=== PATIENT | female | born 1970 | race Caucasian/White ===

== ENCOUNTER 2017-08-19 19:33 | Emergency (ER) | payer OTHER, SELFPAY ==
[2017-08-19 19:33] VITALS: BP 134/92; PULSE 75; RESP 18; TEMP 36.8; O2SAT 96; BMI 44.6
[2017-08-19] MEDS: HYDROmorphone 1 MG/ML Syringe 0.5 MG IV (20:56)
[2017-08-19 21:14] LABS: Absolute Lymphocyte Count 4.26 X10^3/ul (0.83-4.51); Absolute Neutrophil Count 6.5 X10^3/uL (2.0-7.7); Basophil# 0.05 X10^3/uL; Basophil% 0.4 % (0-1); Eosinophils% 1.6 % (0-5); Hematocrit 39.2 % (37-47); Hemoglobin 12.8 g/dl (12.0-15.0); Lymphocyte # 4.26 X10^3/ul (4.0); Lymphocyte % 34.1 % (19-41); Mean Corp Hgb Conc 32.7 g/gl (32-36); Mean Corpuscular Hgb 27.8 pg (27.0-32.0); Mean Platelet Vol. 9.8 fl (6.2-12.0); Monocyte# 1.47 X10^3/uL; Monocyte% 11.8 % (0-10); Neutrophil # 6.45 X10^3/uL (2.7-7.7); Neutrophil % 51.7 % (47-70); Platelet Count 316 K/mm3 (150-450); RBC Distribution Width CV 13.2 % (11.6-14.6); RBC Distribution Width SD 40.7 fl (35.1-43.9); Red Blood Count 4.61 M/mm3 (4.2-5.4); White Blood Count 12.5 K/mm3 (4.4-11.0)
[2017-08-19 21:16] LABS: POSITIVE COUNT NO; POSITIVE DIFFERENTIAL NO; POSITIVE MORPHOLOGY NO
[2017-08-19 21:30] LABS: Anion Gap 8 (5-15); BUN 17 mg/dL (7-18); BUN/Creat Ratio 27.6 RATIO (10-20); Calcium,Total 8.8 mg/dL (8.5-10.1); Chloride 107 mmol/L (98-107); Creatinine, Serum 0.62 mg/dL (0.55-1.02); EST Glomerular Filtration Rate 111 mL/min (>60); Est Glom Filt Rate - Afr Amer 135 mL/min (>60); Estimated Creatinine Clearance 98.95 ml/min; Glucose 119 mg/dL (74-106); Potassium 3.8 mmol/L (3.5-5.1); Sodium Level 139 mmol/L (136-145)
[2017-08-19 21:55] VITALS: BP 128/70; PULSE 80; RESP 14; O2SAT 96
--- NOTE | 2017-08-19 21:57 | ED.DCSUM_ITS ---
- ER Visit Summary Date of Service: 08/19/17 Chief Complaint: Headache and wound check History of Present Illness: The patient is a 47 F who underwent a left carotid ophthalmic segment aneurysm surgery on August 09 at [facility]. She states that today she noticed an odor from her right femoral puncture site. She states that she had some old blood come from the wound. She also notes a headache on the left temporal side which she states she has had is not really any different. She has follow-up with her primary care physician in the morning. She is not scheduled to see neurosurgery for about 1 year. She also concerned because she has some bruises on her legs and she is not sure what he came from. She notes that they are on the outside. No bleeding of the gums. She is unsure if she received heparin in the hospital. Physical Examination: Afebrile vital signs are stable Gen: Well-nourished well-developed Head: Normocephalic atraumatic Eyes: Perrl EOMI no photophobia ENT: TMs clear no rhinorrhea moist mucous membranes Neck: Supple no lymphadenopathy no JVD nontender no meningitic signs CVS: Regular rate rhythm no murmurs normal S1-S2 Respiratory: No distress clear to auscultation bilaterally chest nontender Abdomen: Soft nontender nondistended normal bowel sounds no masses Back: Nontender Extremity: Nontender no edema there is a arterial puncture site in the right femoral area with a small hematoma. There is some erythema and white exudate in the abdominal skin fold in that area. I am not able to express any pus from the wound. She is neurovascularly intact distally with strong dorsalis pedis pulses. Skin: Normal color no rash there are purplish bruises laterally over the thigh about a half dollar size. There are 2 of these. Neuro: alert orientated ?3 CN II-XII intact normal strength sensation reflexes gait cerebellar Psych: Normal affect normal mood Test Results: White count 12.5 hemoglobin 12.8 platelets are 316. Emergency Department Course and Treatment: Spoke with patient. I think the smell she is experiencing is from East skin infection. I will place her on Keflex as well as nystatin powder however. I have her come back tomorrow morning for ultrasound to see if she has a pseudoaneurysm which I feel is unlikely but still should be ruled out for completeness. She has early follow- up tomorrow with her doctor. Impression: 1. Right thigh candidiasis infection 2. Postoperative hematoma This note was generated with [employer] dictation software. It may contain incorrect words, spelling, and punctuation that were not noted in review of the chart prior to signing ED Disposition - Plan for ED Patient: Disposition: Home or Assisted Living Chief Complaint: Headache Instructions: ED Candidiasis Cutaneous Prescriptions: Cephalexin [Keflex] 500 mg PO Q6 #40 cap Nystatin Powder [Mycostatin Powder] 1 applic TOPICAL TID 10 Days #1 bottle Referrals: Lazaro Kennedy DO [Primary Care Provider] - Keep Nikhil appointment
[2017-08-19 21:58] VITALS: BP 130/70; PULSE 75; RESP 14; O2SAT 99
[2017-08-19] MEDS: Cephalexin 250 MG Capsule 500 MG PO (21:58)
== END 2017-08-19 22:10 | disposition home or self-care (01) ==
PROVIDERS: Emergency Provider Emergency Medicine; Family Provider Student in an Organized Health Care Education/Training Program; PCP Student in an Organized Health Care Education/Training Program
DX: H59.3 Postprocedural hemorrhage, hematoma, and seroma of eye and adnexa following a procedure (principal); Y83.8 Other surgical procedures as the cause of abnormal reaction of the patient, or of later complication, without mention of misadventure at the time of the procedure; Y92.9 Unspecified place or not applicable; B37.9 Candidiasis, unspecified; E11.9 Type 2 diabetes mellitus without complications; I10 Essential (primary) hypertension; E78.00 Pure hypercholesterolemia, unspecified
CPT/HCPCS: 80048; 85025; 96374; 99284; A4216

== ENCOUNTER → 2017-08-21 07:56 | Outpatient (CLI) | payer OTHER, SELFPAY ==
--- NOTE | 2017-08-21 08:01 | ADU_ITS ---
Reason For Study: Rt groin pain Right Velocities Left Velocities RT METAL SANDER - .70 x .64 cm with a velocity of 109.0 LT METAL SANDER - .67 x .69 cm with a velocity of 200.0 cm/s cm/s RT CFV demonstrates normal phasic flow signal LT CFV demonstrates normal phasic flow signal. No evidence of PSA or AV fistula. Procedure Exam performed in department. Interpretation Summary Common femoral arteries appear bilaterally patent, demonstrating pulsatile color flow bilaterally. Common femoral veins are patent bilaterally, demonstrating normal, phasic, venous flow. There is no evidence of pseudoanuerysm, arterio-venous fistula, or other iatrogenic abnormality on either side. Ordering Physician: Jairo Vicente Referring Physician: Lazaro Kennedy Performed By: Naima Chan RVT
== END ==
PROVIDERS: Family Provider Student in an Organized Health Care Education/Training Program; PCP Student in an Organized Health Care Education/Training Program; Visit Provider Emergency Medicine
DX: M79.651 Pain in right thigh (principal)
CPT/HCPCS: 93926

== ENCOUNTER → 2017-09-12 18:43 | Outpatient (CLI) | payer OTHER, SELFPAY ==
[2017-09-12 18:55] LABS: Hematocrit 42.6 % (37-47); Mean Corp Hgb Conc 32.9 g/gl (32-36); Mean Corpuscular Hgb 28.3 pg (27.0-32.0); Mean Corpuscular Volume 86.1 fL (81-99); Mean Platelet Vol. 9.1 fl (6.2-12.0); Platelet Count 300 K/mm3 (150-450); RBC Distribution Width CV 14.1 % (11.6-14.6); RBC Distribution Width SD 44.1 fl (35.1-43.9); Red Blood Count 4.95 M/mm3 (4.2-5.4); White Blood Count 17.2 K/mm3 (4.4-11.0)
[2017-09-12 19:08] LABS: Scan Indicated on CBC? Y/N NO
== END ==
PROVIDERS: Family Provider Student in an Organized Health Care Education/Training Program; PCP Student in an Organized Health Care Education/Training Program
DX: R04.0 Epistaxis (principal)
CPT/HCPCS: 36415; 85027

== ENCOUNTER 2017-10-02 18:43 | Emergency (ER) | payer OTHER, SELFPAY ==
[2017-10-02 18:44] VITALS: BP 120/95; PULSE 111; RESP 20; TEMP 36.1; O2SAT 96; BMI 45.6
[2017-10-02 18:56] VITALS: BP 106/64; PULSE 96; RESP 14; O2SAT 97
--- NOTE | 2017-10-02 19:50 | CT_ITS ---
STUDY: CT BRAIN WITHOUT CONTRAST REASON FOR EXAM: Female, 47 years old. Left side of muscle cramps, lightheadedness RADIATION DOSAGE (If Supplied By Facility): CTDIvol = ( 44.99 ) mGy, DLP = ( 796.11 ) mGycm TECHNIQUE: Transaxial CT imaging of the brain was performed without administration of intravenous contrast material. Individualized dose optimization techniques were used for this CT. COMPARISON: None. FINDINGS: Normal soft tissue structures. Normal calvarium. Normal size ventricles and extra-axial spaces for the patient's age. Normal white matter tracts of the cerebral hemispheres. Old lacunar infarct or prominent perivascular space of the left basal ganglia. Normal thalami. Normal brainstem. Normal cerebellum. There is no intracranial hemorrhage. There are no findings of an acute ischemic infarction. Normal visualized paranasal sinuses. CT/Brain/Head without Contrast IMPRESSION: No acute intracranial pathology of the brain. Electronically Signed: Huang Talbert DO at 20:47 EDT Tel [phone], Service support ,
[2017-10-02 20:41] LABS: Absolute Lymphocyte Count 2.71 X10^3/ul (0.83-4.51); Absolute Neutrophil Count 4.8 X10^3/uL (2.0-7.7); Basophil# 0.04 X10^3/uL; Basophil% 0.5 % (0-1); Eosinophil# 0.11 X10^3/uL; Eosinophils% 1.3 % (0-5); Hematocrit 40.7 % (37-47); Hemoglobin 12.8 g/dl (12.0-15.0); Lymphocyte # 2.71 X10^3/ul (4.0); Lymphocyte % 31.4 % (19-41); Mean Corp Hgb Conc 31.4 g/gl (32-36); Mean Corpuscular Hgb 27.8 pg (27.0-32.0); Mean Corpuscular Volume 88.5 fL (81-99); Mean Platelet Vol. 8.9 fl (6.2-12.0); Monocyte# 0.85 X10^3/uL; Monocyte% 9.8 % (0-10); Neutrophil # 4.81 X10^3/uL (2.7-7.7); Neutrophil % 55.6 % (47-70); Platelet Count 279 K/mm3 (150-450); RBC Distribution Width CV 15.1 % (11.6-14.6); RBC Distribution Width SD 48.7 fl (35.1-43.9); White Blood Count 8.6 K/mm3 (4.4-11.0)
[2017-10-02 20:42] LABS: POSITIVE COUNT NO; POSITIVE DIFFERENTIAL NO; POSITIVE MORPHOLOGY NO
[2017-10-02 20:58] VITALS: BP 135/74; PULSE 86; RESP 14; O2SAT 95
[2017-10-02 20:58] LABS: Anion Gap 9 (5-15); BUN 19 mg/dL (7-18); BUN/Creat Ratio 28.8 RATIO (10-20); Calcium,Total 8.5 mg/dL (8.5-10.1); Chloride 104 mmol/L (98-107); Creatinine, Serum 0.66 mg/dL (0.55-1.02); EST Glomerular Filtration Rate 103 mL/min (>60); Est Glom Filt Rate - Afr Amer 124 mL/min (>60); Estimated Creatinine Clearance 92.95 ml/min; Glucose 114 mg/dL (74-106); Potassium 3.8 mmol/L (3.5-5.1); Sodium Level 139 mmol/L (136-145)
--- NOTE | 2017-10-02 21:51 | ED.VISSUMM ---
- ER Visit Summary Date of Service: 10/02/17 Chief Complaint: Muscle spasms, face numbness, low blood pressure History of Present Illness: The patient is a 47 F who underwent repair of a left carotid ophthalmic segment aneurysm at [facility] on August 09. Due to this her goal blood pressure is less than 140 systolic. Patient also had an ischemic stroke on August 26 at which time she had developed difficulty speaking and facial numbness. Patient states that she has had intermittent facial numbness since that time but symptoms for the most part have completely resolved. Patient presents to the ER tonight complaining of muscle cramps and spasms, worse in her legs. She is noted her blood pressure to be lower than normal today with systolic pressures as low as the 80s. She is also noted the facial numbness is more pronounced today and she has a mild headache. She was also recently started on insulin for blood sugar control. Physical Examination: Vital signs on arrival include a blood pressure of 106/64, temperature 97, heart rate 96, respiratory rate 14, pulse ox 97% on room air. Patient sitting upright in bed, alert and talkative. She is in no acute distress. Head and neck examination is unremarkable. Heart is regular rate and rhythm. Lung sounds are clear. Abdomen is soft nontender. Extremity examination reveals mild muscular tenderness in the right calf without palpable cord. No significant edema is noted. Neuro exam reveals slight decreased sensation to light touch over the face bilaterally, no focal weakness is noted. Test Results: CBC and chemistry studies are significant for glucose of 114. Her BUN tonight is 19 which has been climbing when compared to prior values. CT the head shows no acute pathology. Emergency Department Course and Treatment: She was given IV fluids. She will increase p.o. fluids at home and closely monitor her blood pressure. She did check her blood pressure monitor to our monitor here and it is pretty accurate. Patient will follow with her primary care physician. Treatment Plan: [] Disposition: Discharge Impression: Mild dehydration with muscle cramping This note was generated with [employer] dictation software. It may contain incorrect words, spelling, and punctuation that were not noted in review of the chart prior to signing ED Disposition - Plan for ED Patient: Disposition: Home or Assisted Living Chief Complaint: Numb/Ting Instructions: ED Dehydration Referrals: Lazaro Kennedy DO [Primary Care Provider] - 1 Week
[2017-10-02 22:00] VITALS: BP 109/59; PULSE 83; RESP 22; O2SAT 96
--- NOTE | 2017-10-02 22:00 | ED.RN ---
DISCHARGE INSTRUCTIONS GIVEN TO AND REVIEWED WITH PATIENT, PATIENT DENIES QUESTIONS OR CONCERNS AND VOICES UNDERSTANDING OF DISCHARGE INSTRUCTIONS. PT AMBULATES OUT OF ROOM WITHOUT DIFFICULTY.
== END 2017-10-02 22:01 | disposition home or self-care (01) ==
PROVIDERS: Emergency Provider Emergency Medicine; Family Provider Student in an Organized Health Care Education/Training Program; PCP Student in an Organized Health Care Education/Training Program
DX: E86.0 Dehydration (principal); R25.2 Cramp and spasm; E66.9 Obesity, unspecified; E11.9 Type 2 diabetes mellitus without complications; E78.00 Pure hypercholesterolemia, unspecified; J45.909 Unspecified asthma, uncomplicated; G47.33 Obstructive sleep apnea (adult) (pediatric); Z87.891 Personal history of nicotine dependence; Z79.4 Long term (current) use of insulin; F32.9 Major depressive disorder, single episode, unspecified; F41.9 Anxiety disorder, unspecified
CPT/HCPCS: 70450; 80048; 85025; 99284; J7040; A4216

== ENCOUNTER 2018-01-02 21:24 | Emergency (ER) | payer OTHER, SELFPAY ==
[2018-01-02 21:24] VITALS: BP 142/91; PULSE 76; RESP 18; TEMP 36.6; O2SAT 97; BMI 46.9
[2018-01-02] MEDS: Ketorolac 30 MG/ML Syringe IV (22:22)
[2018-01-02] MEDS: Metoclopramide 10 MG/2 ML Vial IV (22:22)
[2018-01-02] MEDS: 0.9% Normal Saline 1,000 ML 999 ML IV (22:22)
[2018-01-02] MEDS: DiphenhydrAMINE 50 MG/ML Syringe 25 MG IV (22:22)
--- NOTE | 2018-01-02 23:06 | ED.VISSUMM ---
- ER Visit Summary Date of Service: 01/02/18 Chief Complaint: Headache History of Present Illness: The patient is a 47 F who has had intermittent headaches for the past week but headache worsened around 2 PM this afternoon. She points to the right parietal region. She denies any recent head injury. Patient did have coiling to a brain aneurysm in August of this year. That is on the left side of her head. She has had multiple MRI scan since that time with no evidence of any other aneurysms. Patient did take Tylenol and oxycodone at home without improvement. She does describe blurred vision from both eyes along with nausea and light sensitivity. She has not had fever or other upper respiratory symptoms. Physical Examination: Vital signs are unremarkable. Head neck examination is grossly unremarkable. Heart is regular rate and rhythm. Lung sounds are clear. Abdomen soft nontender. Neuro exam is unremarkable. Test Results: [] Emergency Department Course and Treatment: Patient is given Toradol, Reglan, Benadryl, and IV fluids. On repeat evaluation she is sleeping comfortably. She easily awakens. She reports significant improvement in her headache. She will be discharged home with family member at this time. Treatment Plan: [] Disposition: Discharge Impression: Migraine, improved This note was generated with [employer] dictation software. It may contain incorrect words, spelling, and punctuation that were not noted in review of the chart prior to signing ED Disposition - Plan for ED Patient: Chief Complaint: Headache Referrals: Lazaro Kennedy DO [Primary Care Provider] -
--- NOTE | 2018-01-02 23:08 | ED.DEP ---
ED Disposition - Plan for ED Patient: Disposition: Home or Assisted Living Chief Complaint: Headache Instructions: ED Headache Migraine Referrals: Lazaro Kennedy DO [Primary Care Provider] - 1-2 Weeks
[2018-01-02 23:15] VITALS: BP 128/68; PULSE 70; RESP 16
== END 2018-01-02 23:16 | disposition home or self-care (01) ==
PROVIDERS: Emergency Provider Emergency Medicine; Family Provider Student in an Organized Health Care Education/Training Program; PCP Student in an Organized Health Care Education/Training Program
DX: G43.909 Migraine, unspecified, not intractable, without status migrainosus (principal); E11.9 Type 2 diabetes mellitus without complications; E78.00 Pure hypercholesterolemia, unspecified; Z87.891 Personal history of nicotine dependence
CPT/HCPCS: 99283; J7030

== ENCOUNTER 2018-01-22 13:55 | Outpatient (RCR) | payer OTHER, SELFPAY ==
--- NOTE | 2018-01-23 14:48 | HP.FCE ---
HP OT Functional Capacity Eval - Task Lift Floor (Occasional 1-33% of Day): 20# Floor (Frequent 34-66% of Day): 10# Floor (Constant 67-100% of Day): NA Floor PDL: Light Knee (Occasional 1-33% of Day): 20# Knee (Frequent 34-66% of Day): 10# Knee (Constant 67-100% of Day): NA Knee PDL: Light Waist (Occasional 1-33% of Day): 20# Waist (Frequent 34-66% of Day): 10# Waist (Constant 67-100% of Day): NA Waist PDL: Light Shoulder (Occasional 1-33% of Day): 15# Shoulder (Frequent 34-66% of Day): 8# Shoulder (Constant 67-100% of Day): NA Shoulder PDL: Sedentary-Light Overhead (Occasional 1-33% of Day): NA Overhead (Frequent 34-66% of Day): NA Overhead (Constant 67-100% of Day): NA Overhead PDL: No Ability - Work Activity/Posture Bending: Occasional Ability (1-33% of day) Comments: low occasional Squatting: Occasional Ability (1-33% of day) Comments: low occasional Kneeling: No Ablility (0% of day) Reaching out: Occasional Ability (1-33% of day) Reaching up: No Ablility (0% of day) Sitting: Occasional Ability (1-33% of day) Walking: Occasional Ability (1-33% of day) Comments: low occasional Standing: Occasional Ability (1-33% of day) Comments: low occasional - Reference Duration Sedentary Sedentary Light Light Light Medium Medium Medium Heavy Very Heavy Heavy Occasional (0-33% of day) Frequent (34-66% of day) Constant (67-100% of day) 10 # Negligible Negligible 15 # 8 # Negligible 20 # 10# Negli. 35 # 18 # 7 # 50 # 25 # 10 # 75 # 100 # >100 # 38 # 50 # >50 # 15 # 20 # >20 # - Patient Information Height: 1.63 m Weight:: 124.284 kg Hand Dominance: Right - Medical History Medical History Including Restrictions: PT reports she has a complicated health and emotional hx.PT states she was on disability 2000 with dx. Bipolar, anxiety, depression. With medical treatment she was able to return to work in 2004. Pt reports she started having trouble with her health in early 2015, having pain in joints, difficulty breathing and joints swelling. PT was dx in 2015 with mixed connective tissue disorder, Fibro, Lung disease with systemic sclerosis, centrllobular emphysema, scleroderma. pt states the joint pain and back pain limit her with daily tasks. pt states she is back to seeing a counsler 2x month for her depression. Pt states her Nurologist Dr. Mejía states she is not allowed to get her BP up past 130/80, as this can cause her to have another stroke. - Diagnoses Diagnoses: DDD dx 2004. Bilateral Knee pain dx 1999. Chronic low back pain with sciatica dx 2003. Lung disease with systemic sclerosis dx 2015. Centrllobular emphysema dx in 2015. Scleroderma dx 2016. Mixed connective tissue disease dx 2016. Fibromyalgia dx 2016. Brain Anuyrism dx 2018. Stroke dx 2018. DMII dx 2012. Factor 8 Blood disorder dx 2017. Migraines dx 2018. Bipolar Disorder - Symptoms Symptoms: Brain Fog. Dizzy. Joint pain. Muscle pain. Decreased concertration. difficult time putting sentences together. Anger mood swings. Depression - Pain Pain: pt states her current pain level is 4-5/10 with medication. 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 PT states due to health issues she was unable to continue working at this job. Her family did tell her to stop working due to her health issues. - Behavioral Behavioral: pt was cooroperative - ADLS ADLS: Pt reports she lives with her spouse in a one story home with a basement with 4 entry steps. Pt states laundry is in the basement and she is able to go down the flight of stairs with us of rails. Pt states she does have a tub shower combo and will only shower with her on because she gets dizzy while in the shower. Pt states she can perform meal prep and meals with taking rest breaks. Pt states she drives only in town. pt is able to do shoping with her spouse. Pt states she is KRISTIN with her bathing and dressing tasks. Pt reports her sister comes and will do the cleaing. - Physical Examination ROM: Pt demo limited Bilateral shoulder flex to 90 degress. pt demo all other ROM WFL but reported pain with movement 8/10. Strength: PT demo functional strength levels grossly throughout at 4/5. Right Exercise Equipment Specialist Strength Average: 35.00 Right Exercise Equipment Specialist Strength Percentile: 1.5% Left Exercise Equipment Specialist Strength Average: 41.00 Left Exercise Equipment Specialist Strength Percentile: 5% Right Lateral Pinch Average: 7.33 Right Lateral Pinch Percentile: <10% Left Lateral Pinch Average: 9.33 Left Lateral Pinch Percentile: 10% Right Tripod Pinch Average: 10.00 Right Tripod Pinch Percentile: 25% Left Tripod Pinch Average: 9.66 Left Tripod Pinch Percentile: 25% Sensation: Using [employer] monofilament pt tested left 5 digits tested at 3.22 indicating slight decrease in sensation. right digit 1, 3, and 5 tested at 3.61 slight decrease in sensation and digits 2 and 4 testing at 3.84 some sensation loss Fine Motor: Denies concerns Balance: no loss of balance noted during assessment - Non Material Handling Activities Bending: Pt demo the ability to bend forward three times and reported back pain 7-8/10 and became emotional due to her pain levels. Pt did use external support during task. pt was unable to perform task ten time or ten times rapidly. pt can bend forward on a low occasional basis. Squatting: Pt demo the ability to squat three times with external support. pt reported bilateral knee pain 7/10, back pain 8-9/10. pt can squat on a low occassional ability. Kneeling: Pt demo the ability to kneel one time with heavy use of extneral support kneeling down and getting up. pt reported back pain 7-8/10 and knee pain 6-7/10. pt demo no functional ability to kneel. Reaching out/up: Pt demo the ability to reach out three times and then 5 times. pt was unable to completed reaching out ten times or ten times rapidly. pt can reach out on a low occasional ability. Pt demo no ability to reach up. Walking: pt demo the ability to amb with a antalgic reciprical gait for 8 min. pt reported joint pain at 8/10. pt can amb on a low occasional ability. Standing: pt demo the ability to stand for 2 min before needing to sift body weight. pt demo total time of standing 6 min prior to sitting down. pt can stand on a low occasional basis. Sitting: pt demo the ability to sit for 35 min and needed to stand- pt stood for 2 min and returnd to sitting for another 33 min. pt can sit on a occasional basis. Climbing Stairs: pt ascended/descended ten steps with between a reciprical and right left foot step-up pattern using both hand rails. - Dynamic Occasional Lifting Capacity Floor Lift: pt demo the ability to lift 20# maximally from this level. Knee Lift: pt demo the ability to lift 20# maximally from this level. Waist Lift: pt demo the ability to lift 20# maximally from this level. Shoulder Lift: pt demo the ability to lift 15# maximally from this level. Overhead Lift: no ability Carrying: pt demo the ability to carry 15# for 35 feet. pt states her back, hips and knee pain is 8/10. pt reports senation of arms and legs feeling like jello. Comments: Pain is limiting factor with functional tasks.
== END 2018-01-22 19:00 | disposition home or self-care (01) ==
LOC: OT 13:55
PROVIDERS: Family Provider Student in an Organized Health Care Education/Training Program; PCP Student in an Organized Health Care Education/Training Program; Visit Provider Student in an Organized Health Care Education/Training Program
DX: M25.511 Pain in right shoulder (principal); M25.512 Pain in left shoulder; M25.561 Pain in right knee; M25.562 Pain in left knee; M54.40 Lumbago with sciatica, unspecified side; G89.29 Other chronic pain; M34.81 Systemic sclerosis with lung involvement; J43.2 Centrilobular emphysema; M34.9 Systemic sclerosis, unspecified
CPT/HCPCS: 97750

== ENCOUNTER → 2018-04-17 11:34 | Emergency (ER) | payer OTHER, SELFPAY ==
[2018-04-17 11:35] VITALS: BP 121/90; PULSE 84; RESP 20; TEMP 36.7; O2SAT 99; BMI 47.7
--- NOTE | 2018-04-17 13:14 | ED.RN ---
pt lwbs at [id number]
== END ==
PROVIDERS: Family Provider Student in an Organized Health Care Education/Training Program; PCP Student in an Organized Health Care Education/Training Program
DX: R69 Illness, unspecified (principal)

== ENCOUNTER 2018-04-18 14:06 | Emergency (ER) | payer OTHER, SELFPAY ==
[2018-04-18 14:12] VITALS: BP 181/89; PULSE 79; RESP 18; TEMP 36.1; O2SAT 97; BMI 47.7
[2018-04-18 14:35] VITALS: RESP 18; O2SAT 100
--- NOTE | 2018-04-18 14:35 | RAD_ITS ---
STUDY: X-RAY CHEST REASON FOR EXAM: Female, 47 years old. Shortness of breath. Pain. Congestion TECHNIQUE: PA and lateral views of the chest. COMPARISON: July 28, 2017. FINDINGS: The lungs are clear and expanded. There is no demonstrated pleural abnormality. Normal size heart. Normal mediastinum and kaya. Normal visualized pulmonary arteries. Normal visualized aortic arch and descending thoracic aorta. There are diffuse degenerative changes of the visualized thoracic spine. Normal visualized ribs, clavicles, and shoulders. There is no demonstrated abnormality of the visualized soft tissue structures of the upper abdomen. RAD/Chest PA and Lateral IMPRESSION: Normal x-ray examination of the chest. Electronically Signed: Henry Vinson MD at 15:21 EDT , Service support ,
--- NOTE | 2018-04-18 15:56 | CT_ITS ---
STUDY: CTA CHEST REASON FOR EXAM: Female, 47 years old. Right-sided chest pain, congestion, clotting disorder, hypertension, diabetes and asthma. RADIATION DOSAGE (If Supplied By Facility): CTDIvol = ( 16.72 ) mGy, DLP = ( 668.06 ) mGycm TECHNIQUE: The examination was performed with the intravenous administration of 100mL ml of Isovue 370 contrast material. Post-processing of the angiographic images was performed, with multiplanar reformation and 3D reconstruction. Individualized dose optimization techniques were used for this CT. COMPARISON: Chest radiograph of April 18, 2018 FINDINGS: Normal enhancement of the main pulmonary artery and right and left pulmonary arteries. Normal enhancement of the bilateral peripheral pulmonary arteries. There is no demonstrated pulmonary embolism. Normal thoracic aorta and visualized great vessels. There is no demonstrated aortic dissection. Normal heart and pericardium. Minimal coronary calcification. Normal mediastinum. Shotty hilar lymph nodes. Mild emphysematous upper lung zone changes. 5 x 4 mm noncalcified nodule juxtaposed the minor fissure. Mild posterior bibasilar atelectatic changes right greater than left. Mild linear atelectatic changes of the lingula. Negative for pleural effusion. Normal chest wall structures. There are degenerative changes of thoracic spine. Fatty liver. 1.4 cm fatty nodule of the left adrenal gland consistent with benign etiology. CT/CTA Chest W/WO Contrast IMPRESSION: Negative for pulmonary embolus. Normal thoracic aorta. Minimal coronary calcification. Shotty hilar lymph nodes, long axis less than 1.5 cm. Mild emphysematous upper lung zone changes. Mild posterior bibasilar atelectatic changes right greater than left and minimal linear atelectatic change. 5 x 4 mm noncalcified perifissural nodule of the right middle lung zone. Nodules of this size require no specific follow-up in a low risk patient. Twelve-month follow-up high risk patient. Electronically Signed: Jaylin Gracia MD at 17:11 EDT , Service support ,
--- NOTE | 2018-04-18 15:56 | EKG12_ITS ---
Test Reason : CP Blood Pressure : / mmHG Vent. Rate : 070 BPM Atrial Rate : 070 BPM P-R Int : 150 ms QRS Dur : 086 ms QT Int : 400 ms P-R-T Axes : 065 011 048 degrees QTc Int : 432 ms Normal sinus rhythm Normal ECG Confirmed by LORETA RUTHERFORD MD ([id number]), metropolitan editor GERMAN GREENBERG ([id number]) on 04/21/2018 3:17:21 PM Referred By: EDPHYS Confirmed By:LORETA RUTHERFORD MD
[2018-04-18 16:19] LABS: Absolute Lymphocyte Count 3.05 X10^3/ul (0.83-4.51); Absolute Neutrophil Count 3.3 X10^3/uL (2.0-7.7); Basophil# 0.05 X10^3/uL; Basophil% 0.7 % (0-1); Eosinophil# 0.22 X10^3/uL; Hematocrit 41.5 % (37-47); Hemoglobin 13.4 g/dl (12.0-15.0); Lymphocyte # 3.05 X10^3/ul (4.0); Lymphocyte % 41.3 % (19-41); Mean Corp Hgb Conc 32.3 g/gl (32-36); Mean Corpuscular Hgb 26.2 pg (27.0-32.0); Mean Corpuscular Volume 81.1 fL (81-99); Mean Platelet Vol. 9.5 fl (6.2-12.0); Monocyte# 0.74 X10^3/uL; Neutrophil # 3.31 X10^3/uL (2.7-7.7); Neutrophil % 44.9 % (47-70); Platelet Count 270 K/mm3 (150-450); RBC Distribution Width CV 14.7 % (11.6-14.6); RBC Distribution Width SD 43.5 fl (35.1-43.9); Red Blood Count 5.12 M/mm3 (4.2-5.4); White Blood Count 7.4 K/mm3 (4.4-11.0)
[2018-04-18 16:23] LABS: Anion Gap 6 (5-15); BUN 10 mg/dL (7-18); BUN/Creat Ratio 15.4 RATIO (10-20); Calcium,Total 8.6 mg/dL (8.5-10.1); Chloride 104 mmol/L (98-107); Creatinine, Serum 0.65 mg/dL (0.55-1.02); EST Glomerular Filtration Rate 104 mL/min (>60); Est Glom Filt Rate - Afr Amer 126 mL/min (>60); Estimated Creatinine Clearance 94.38 ml/min; Glucose 115 mg/dL (74-106); Sodium Level 141 mmol/L (136-145)
[2018-04-18 16:25] LABS: POSITIVE COUNT NO; POSITIVE DIFFERENTIAL NO; POSITIVE MORPHOLOGY NO
[2018-04-18 16:29] VITALS: PULSE 74; RESP 14; O2SAT 95
[2018-04-18] MEDS: 0.9% Normal Saline 1,000 ML 150 ML IV (17:15)
--- NOTE | 2018-04-18 17:34 | ED.VISSUMM ---
- ER Visit Summary Date of Service: 04/18/18 Chief Complaint: Shortness of breath, right lung pain History of Present Illness: The patient is a 47 F who developed right sided lung pain yesterday. She had dry cough with some head congestion. No fever or chills. She does have a history of a clotting disorder, factor VIII. She had clots in her brain after aneurysm surgery previously. Physical Examination: Blood pressure on arrival is 181/89, other vitals normal. Patient sitting upright initially the amezquita bed. She is in no acute distress and speaking full sentences. Head neck examination is unremarkable. Heart is regular rate and rhythm. Lung sounds are clear. Abdomen is soft nontender. Lower external examination was no significant calf tenderness or edema. Test Results: EKG is sinus at 70 with no acute ischemia. CBC and chemistry studies normal. Two-view chest x-ray is unremarkable. Because of the patient's clotting disorder, CTA of the chest is obtained that reveals no evidence of PE and a normal aorta. There is are mild emphysematous changes noted over the upper lungs. She has noncalcified nodule noted. Emergency Department Course and Treatment: Patient has maintained stable vitals throughout her ED stay. Test results are discussed with her. She will be given a short course of steroids for pleurisy. Treatment Plan: [] Disposition: Discharge Impression: Pleurisy This note was generated with [employer] dictation software. It may contain incorrect words, spelling, and punctuation that were not noted in review of the chart prior to signing ED Disposition - Plan for ED Patient: Chief Complaint: Chest Other Referrals: Lazaro Kennedy DO [Primary Care Provider] -
--- NOTE | 2018-04-18 17:36 | ED.DEP ---
ED Disposition - Plan for ED Patient: Disposition: Home or Assisted Living Chief Complaint: Chest Other Instructions: Pleurisy Prescriptions: Prednisone [Deltasone] 60 mg PO DAILY #15 tablet Referrals: Lazaro Kennedy DO [Primary Care Provider] - 1 Week
[2018-04-18] MEDS: predniSONE 20 MG Tablet 60 MG PO (17:41)
[2018-04-18 17:45] VITALS: BP 129/76; PULSE 72; RESP 16; O2SAT 97
--- NOTE | 2018-04-18 17:45 | ED.RN ---
REVIEWED D/C INSTRUCTIONS, FOLLOW UP CARE, PRESCRIPTION, AND S/S THAT WOULD WARRANT A RETURN TO THE ED WITH PT. PT VERBALIZED AN UNDERSTANDING AND DENIES FURTHER QUESTIONS FOR THIS RN. PT SKIN P/W/D, RESP EVEN AND UNLABORED, PT A&O X 3, NO DISTRESS NOTED. PT AMBULATED OUT OF ED, GAIT STEADY.
== END 2018-04-18 17:47 | disposition home or self-care (01) ==
PROVIDERS: Emergency Provider Emergency Medicine; Family Provider Student in an Organized Health Care Education/Training Program; PCP Student in an Organized Health Care Education/Training Program
DX: R09.1 Pleurisy (principal); E11.9 Type 2 diabetes mellitus without complications; I10 Essential (primary) hypertension; E78.00 Pure hypercholesterolemia, unspecified; G47.33 Obstructive sleep apnea (adult) (pediatric); D68.51 Activated protein C resistance; J45.909 Unspecified asthma, uncomplicated; Z87.891 Personal history of nicotine dependence; Z79.4 Long term (current) use of insulin
CPT/HCPCS: 71046; 71275; 80048; 85025; 93005; 94760; 99284; J7030; Q9967; A4216

== ENCOUNTER 2018-07-01 14:10 | Emergency (ER) | payer OTHER, SELFPAY ==
[2018-07-01 14:12] VITALS: BP 162/98; PULSE 95; RESP 16; TEMP 36.1; O2SAT 100; BMI 50.1
[2018-07-01 14:27] VITALS: BP 158/110
--- NOTE | 2018-07-01 14:27 | EKG12_ITS ---
Test Reason : CP Blood Pressure : / mmHG Vent. Rate : 087 BPM Atrial Rate : 087 BPM P-R Int : 152 ms QRS Dur : 092 ms QT Int : 360 ms P-R-T Axes : 062 003 046 degrees QTc Int : 433 ms Normal sinus rhythm Left ventricular hypertrophy Abnormal ECG Confirmed by ASHOK LARIOS, NAYLA ([id number]), assistant production editor GERMAN GREENBERG ([id number]) on 07/04/2018 3:17:04 PM Referred By: VAMSHI Confirmed By:NAYLA PULIDO MD
[2018-07-01] MEDS: Aspirin 81 MG TAB.CHEW 324 MG PO (14:37)
[2018-07-01] MEDS: Morphine 4 MG/ML Syringe IV (14:37)
[2018-07-01] MEDS: 0.9% Normal Saline 1,000 ML 150 ML IV (14:37)
[2018-07-01] MEDS: Ondansetron 4 MG/2 ML Vial IV (14:37)
[2018-07-01 14:43] VITALS: O2SAT 98
[2018-07-01 14:43] LABS: Absolute Lymphocyte Count 1.42 X10^3/ul (0.83-4.51); Absolute Neutrophil Count 10.5 X10^3/uL (2.0-7.7); Basophil# 0.05 X10^3/uL; Basophil% 0.4 % (0-1); Eosinophil# 0.01 X10^3/uL; Eosinophils% 0.1 % (0-5); Hemoglobin 13.9 g/dl (12.0-15.0); Lymphocyte # 1.42 X10^3/ul (4.0); Lymphocyte % 11.1 % (19-41); Mean Corp Hgb Conc 32.3 g/gl (32-36); Mean Corpuscular Hgb 26.3 pg (27.0-32.0); Mean Corpuscular Volume 81.4 fL (81-99); Mean Platelet Vol. 9.4 fl (6.2-12.0); Monocyte# 0.77 X10^3/uL; Neutrophil # 10.46 X10^3/uL (2.7-7.7); Neutrophil % 81.9 % (47-70); Platelet Count 323 K/mm3 (150-450); RBC Distribution Width CV 13.4 % (11.6-14.6); RBC Distribution Width SD 39.7 fl (35.1-43.9); Red Blood Count 5.28 M/mm3 (4.2-5.4); White Blood Count 12.8 K/mm3 (4.4-11.0)
[2018-07-01 14:44] LABS: POSITIVE COUNT NO; POSITIVE DIFFERENTIAL NO; POSITIVE MORPHOLOGY NO
[2018-07-01 14:51] LABS: D-Dimer Quantitative (DVT/PE) 0.52 FEU/ug/m (0.27-0.49)
--- NOTE | 2018-07-01 14:52 | ED.RN ---
DR. BUCK AWARE OF ELEVATED DDIMER.
--- NOTE | 2018-07-01 14:53 | RAD_ITS ---
STUDY: X-RAY CHEST REASON FOR EXAM: Female, 47 years old. TECHNIQUE: COMPARISON: Was made to the study of April 18, 2018 FINDINGS: Again the heart is not enlarged. The lungs are clear and expanded. There is no demonstrated pleural abnormality. Normal mediastinum and kaya. Normal visualized pulmonary arteries. Normal visualized aortic arch and descending thoracic aorta. Normal visualized thoracic spine. Normal visualized ribs, clavicles, and shoulders. There is no demonstrated abnormality of the visualized soft tissue structures of the upper abdomen. RAD/Chest 1 View (Portable) IMPRESSION: Normal x-ray examination of the chest. Electronically Signed: My Sánchez, at 15:13 EST Tel , Service support ,
[2018-07-01 14:55] LABS: Anion Gap 9 (5-15); BUN 16 mg/dL (7-18); BUN/Creat Ratio 16.8 RATIO (10-20); Calcium,Total 8.9 mg/dL (8.5-10.1); Chloride 103 mmol/L (98-107); Creatinine, Serum 0.95 mg/dL (0.55-1.02); EST Glomerular Filtration Rate 67 mL/min (>60); Est Glom Filt Rate - Afr Amer 81 mL/min (>60); Estimated Creatinine Clearance 64.58 ml/min; Glucose 245 mg/dL (74-106); Potassium 4.3 mmol/L (3.5-5.1); Sodium Level 137 mmol/L (136-145)
--- NOTE | 2018-07-01 15:15 | CT_ITS ---
STUDY: CTA CHEST REASON FOR EXAM: Female, 47 years old. RADIATION DOSAGE (If Supplied By Facility): CTDIvol = ( 23.37 ) mGy, DLP = ( 677.86 ) mGycm TECHNIQUE: The examination was performed with the intravenous administration of 100ML ml of Isovue 370 contrast material. Post-processing of the angiographic images was performed, with multiplanar reformation and 3D reconstruction. Individualized dose optimization techniques were used for this CT. COMPARISON: April 18, 2018 FINDINGS: The cardiac silhouette is not enlarged The pulmonary trunk and both pulmonary arteries including the segmental and subsegmental branches are delineated well with contrast without evidence of filling defect to suggest pulmonary embolism. The aortic arch including the the ascending and descending aorta are unremarkable. The lung brown are clear. No evidence of consolidation or atelectasis. No pleural effusion or pneumothorax. There are moderate hypertrophic changes involving the dorsal spine. Normal chest wall structures. Normal visualized upper abdomen. . CT/CTA Chest W/WO Contrast IMPRESSION: Negative study for PE. Electronically Signed: My Sánchez, at 16:07 EST Tel , Service support ,
[2018-07-01 16:09] VITALS: BP 140/114; PULSE 99; RESP 18; O2SAT 93
--- NOTE | 2018-07-01 16:14 | ED.VISSUMM ---
- ER Visit Summary Date of Service: 07/01/18 Chief Complaint: [Chest pain] History of Present Illness: The patient is a 47 F [presents to the emergency department with complaint of pain in her right chest and right upper back. Patient states pain worse with movement. Patient states pain not really neuritic. She denies any fever. She denies any cough. Patient states that she had surgery on her right foot May 05. She denies any hemoptysis. Patient has history of autoimmune these including scleroderma, lupus, fibromyalgia, and Raynaud's. She has been taking Naprosyn and Flexeril and did have a Percocet left over from her surgery which did not seem to help her pain very much. Patient states pain is sharp intermittently but has a continuous aching sensation in her right chest and back.] Physical Examination: [HEENT-PERRLA, EOMI. Cranial nerves II through XII grossly intact. TMs clear. Mucous membranes moist. No adenopathy. Cardiovascular-regular rate and rhythm without murmur or ectopy Lungs-clear to auscultation, chest wall stable without crepitus or subcu emphysema. Patient has tenderness to palpation over the right anterior chest wall that seems to reproduce her pain. Patient also has tenderness over the right posterior upper thoracic paraspinal musculature that reproduces her pain. Abdomen-normoactive bowel sounds, soft, nontender, no rebound or rigidity, no peritoneal signs. Extremities-intact ?4, normal range of motion, normal pulses, atraumatic] Test Results: [EKG obtained arrival shows sinus rhythm with a ventricular rate of 87 bpm with some LVH noted. CBC with differential was significant for a white blood cell count of 12.8. Hemoglobin 13.9, hematocrit 43, platelets 323.. Chemistries unremarkable.] Troponin was less than 0.015. Chest x-ray was normal. D-dimer was elevated 0.52 therefore a CTA of the chest was obtained which was negative for PE or anything acute. Emergency Department Course and Treatme patient was medicated with morphine and Zofran Treatment Plan: [Patient will be given a prescription for Percocet for pain and advised to follow-up with primary care physician within next 3-5 days.] Disposition: [Discharged home in stable condition. Patient advised to return if worsening pain, fever, hemoptysis, increasing shortness of breath, or condition should worsen anyway.] Impression: [Chest wall pain] This note was generated with [employer] dictation software. It may contain incorrect words, spelling, and punctuation that were not noted in review of the chart prior to signing ED Disposition - Plan for ED Patient: Chief Complaint: Chest Pain Referrals: Lazaro Kennedy DO [Primary Care Provider] -
--- NOTE | 2018-07-01 16:18 | ED.DCSUM_ITS ---
- ER Visit Summary Date of Service: 07/01/18 Chief Complaint: [Chest pain] History of Present Illness: The patient is a 47 F [presents to the emergency department with complaint of pain in her right chest and right upper back. Patient states pain worse with movement. Patient states pain not really neuriti c. She denies any fever. She denies any cough. Patient states that she had surgery on her right foot May 05. She denies any hemoptysis. Patient has history of autoimmune these including scleroderma, lupus, fibromyalgia, and Raynaud's. She has been taking Naprosyn and Flexeril and did have a Percocet left over from her surgery which did not seem to help her pain very much. Patient states pain is sharp intermittently but has a continuous aching sensation in her right chest and back.] Physical Examination: [HEENT-PERRLA, EOMI. Cranial nerves II through XII grossl y intact. TMs clear. Mucous membranes moist. No adenopathy. Cardiovascular-regular rate and rhythm without murmur or ectopy Lungs-clear to auscultation, chest wall stable without crepitus or subcu emphysema. Patient has tenderness to palpation over the right anterior chest wall that seems to reproduce her pain. Patient also has tenderness over the right posterior upper thoracic paraspinal musculature that reproduces her pain. Abdomen-normoactive bowel sounds, soft, nontender, no rebound or rigidity, no peritoneal signs. Extremities-intact ?4, normal range of motion, normal pulses, atraumatic] Test Results: [EKG obtained arrival shows sinus rhythm with a ventricular rate of 87 bpm with some LVH noted. CBC with differential was significant for a white blood cell count of 12.8. Hemoglobin 13.9, hematocrit 43, platelets 323.. Chemistries unremarkable.] Troponin was less than 0.015. Chest x-ray was normal. D-dimer was elevated 0.52 therefore a CTA of the chest was obtained which was negative for PE or anything acute. Emergency Department Course and Treatme patient was medicated with morphine and Zofran Treatment Plan: [Patient will be given a prescription for Percocet for pain and advised to follow-up with primary care physician within next 3-5 days.] Disposition: [Discharged home in stable condition. Patient advised to return if worsening pain, fever, hemoptysis, increasing shortness of breath, or condition should worsen anyway.] Impression: [Chest wall pain] This note was generated with [employer] dictation software. It may contain incorrect words, spelling, and punctuation that were not noted in review of the chart prior to signing ED Disposition - Plan for ED Patient: Chief Complaint: Chest Pain Referrals: Lazaro Kennedy DO [Primary Care Provider] -
--- NOTE | 2018-07-01 16:18 | ED.DEP ---
ED Disposition - Plan for ED Patient: Chief Complaint: Chest Pain Instructions: ED Chest Pain NonCardiac, ED Chest Pain Atypical Unkn Cause Prescriptions: Oxycodone HCl/Acetaminophen [Percocet 5/325] 1 tab PO Q6H PRN PRN 3 Days #12 tab PRN Reason: Pain Referrals: Lazaro Kennedy DO [Primary Care Provider] - 3-5 Days
[2018-07-01 16:26] VITALS: BP 121/66; PULSE 91; RESP 17; O2SAT 93
== END 2018-07-01 16:27 | disposition home or self-care (01) ==
LOC: ED 14:36
PROVIDERS: Emergency Provider Emergency Medicine; Family Provider Student in an Organized Health Care Education/Training Program; PCP Student in an Organized Health Care Education/Training Program
DX: R07.89 Other chest pain (principal); E11.9 Type 2 diabetes mellitus without complications; I10 Essential (primary) hypertension; E78.00 Pure hypercholesterolemia, unspecified; J45.909 Unspecified asthma, uncomplicated; M32.9 Systemic lupus erythematosus, unspecified; M79.7 Fibromyalgia; I73.00 Raynaud's syndrome without gangrene; M34.9 Systemic sclerosis, unspecified
CPT/HCPCS: 71045; 71275; 80048; 84484; 85025; 85379; 93005; 99284; J7030; Q9967; A4216; J2405

== ENCOUNTER 2018-08-19 17:59 | Emergency (ER) | payer OTHER, SELFPAY ==
[2018-08-19 18:00] VITALS: BP 165/113; PULSE 95; RESP 16; TEMP 36.9; O2SAT 95; BMI 49.0
--- NOTE | 2018-08-19 18:31 | CT_ITS ---
STUDY: CTA OF THE BRAIN REASON FOR EXAM: Female, 48 years old. Left aneurysm RADIATION DOSAGE (If Supplied By Facility): CTDIvol = ( 29.19 ) mGy, DLP = ( 1627.91 ) mGycm TECHNIQUE: CT angiography was performed with a multi-detector CT scanner. Data acquisition was obtained from the skull base through the vertex following intravenous administration of ml of . MIP images were reconstructed from the axial data set. Post-processing of the angiographic images was performed, with multiplanar reformation and 3D reconstruction. Individualized dose optimization techniques were used for this CT. COMPARISON: None. FINDINGS: Normal bilateral petrous carotid arteries. Normal right cavernous carotid artery with a normal supraclinoid bifurcation. There appears to be a patent stent in the left cavernous carotid artery with a normal supraclinoid bifurcation. Normal right A1 segments of the anterior cerebral artery. Normal left A1 segments of the anterior cerebral artery. Normal intact anterior communicating artery (ACOM). Normal bilateral A2 segments of the anterior cerebral arteries. Normal right M1 and M2 segments of the middle cerebral arteries, with a normal M1 bifurcation. Normal left M1 and M2 segments of the middle cerebral arteries, with a normal M1 bifurcation. Normal right posterior communicating artery (PCOM). Normal left posterior communicating artery (PCOM). Normal bilateral vertebral arteries. Normal basilar artery with a normal basilar bifurcation. The visualized bilateral superior cerebellar (SCA) arteries are normal. Normal bilateral P1, P2 and visualized P3 segments of the posterior cerebral arteries. . There is no demonstrated abnormality of the visualized brain. CT/CTA Head W/WO Contrast IMPRESSION: Patent stented left cavernous carotid artery otherwise normal [place] without a demonstrated aneurysm or hemodynamically significant stenosis. Electronically Signed: Ambrose Almendarez MD at 22:04 EST , Service support ,
--- NOTE | 2018-08-19 18:31 | CT_ITS ---
STUDY: CTA NECK WITH CONTRAST REASON FOR EXAM: Female, 48 years old. Left aneurysm and headache RADIATION DOSAGE (If Supplied By Facility): CTDIvol = ( 29.19 ) mGy, DLP = ( 1627.91 ) mGycm TECHNIQUE: CT angiography with multi-detector data acquisition was performed from the aortic arch to the skull base following intravenous administration of 100 ml of Isovue 370 contrast. MIP images were reconstructed from the axial data set. Post-processing of the angiographic images was performed, with multiplanar reformation and 3D reconstruction. Individualized dose optimization techniques were used for this CT. COMPARISON: None. FINDINGS: AORTIC ARCH: Normal visualized aortic arch. Normal origins of the brachiocephalic, left common carotid, and left subclavian arteries. RIGHT CAROTID ARTERIES: Normal right common carotid artery (CCA). Normal right common carotid bulb. Normal origin of the right internal carotid (ICA) artery without a hemodynamically significant stenosis. Normal visualized cervical portion of the right internal carotid artery. Normal origin of the right external carotid artery (ECA). LEFT CAROTID ARTERIES: Normal left common carotid artery (CCA). Normal left common carotid bulb. Normal origin of the left internal carotid (ICA) artery without a hemodynamically significant stenosis. Normal visualized cervical portion of the left internal carotid artery. Normal origin of the left external carotid artery (ECA). VERTEBRAL ARTERIES: Left vertebral is dominant and normal caliber. The right vertebral is mildly diffusely narrowed which is normal developmental variant CT/CTA Neck W/WO Contrast IMPRESSION: Normal bilateral cervical carotid and vertebral arteries. Electronically Signed: Ambrose Almendarez MD at 22:05 EST , Service support ,
[2018-08-19] MEDS: 0.9% Normal Saline 1,000 ML 150 ML IV (19:00)
[2018-08-19 19:12] LABS: Mucous, Urine 0 SEEN /hpf (<or=2+); Red Blood Cells-Urine 0 SEEN /hpf (0-5); Squamous Epithelial Cells - UA 0 SEEN /hpf (5-10); White Blood Cells 0 SEEN /hpf (0-5)
[2018-08-19 19:18] LABS: Color, Urine Yellow (Yellow); Glucose, Dipstick 1000 mg/dl (Normal); Ketone-Dipstick Negative (Negative); Leukocyte Esterase-Dipstick Negative /ul (Negative); Nitrite-Dipstick Negative (Negative); Occult Blood-Urine Negative /ul (Negative); Protein-Dipstick Negative (Negative); Urine Bilirubin Dipstick Negative (Negative); Urine Clarity Clear (Clear); Urine Urobilinogen Normal (Normal)
[2018-08-19 19:20] LABS: Absolute Lymphocyte Count 4.09 X10^3/ul (0.83-4.51); Absolute Neutrophil Count 6.6 X10^3/uL (2.0-7.7); Basophil# 0.05 X10^3/uL; Basophil% 0.4 % (0-1); Eosinophil# 0.14 X10^3/uL; Eosinophils% 1.2 % (0-5); Hematocrit 48.1 % (37-47); Hemoglobin 15.5 g/dl (12.0-15.0); Lymphocyte # 4.09 X10^3/ul (4.0); Lymphocyte % 33.9 % (19-41); Mean Corp Hgb Conc 32.2 g/gl (32-36); Mean Corpuscular Hgb 26.2 pg (27.0-32.0); Mean Corpuscular Volume 81.4 fL (81-99); Mean Platelet Vol. 9.7 fl (6.2-12.0); Monocyte# 1.13 X10^3/uL; Monocyte% 9.4 % (0-10); Neutrophil # 6.59 X10^3/uL (2.7-7.7); Neutrophil % 54.7 % (47-70); POSITIVE COUNT NO; POSITIVE DIFFERENTIAL NO; POSITIVE MORPHOLOGY NO; Platelet Count 343 K/mm3 (150-450); RBC Distribution Width CV 13.9 % (11.6-14.6); RBC Distribution Width SD 41.2 fl (35.1-43.9); Red Blood Count 5.91 M/mm3 (4.2-5.4); White Blood Count 12.1 K/mm3 (4.4-11.0)
[2018-08-19 19:27] LABS: Anion Gap 8 (5-15); BUN 14 mg/dL (7-18); BUN/Creat Ratio 20.3 RATIO (10-20); Chloride 103 mmol/L (98-107); Creatinine, Serum 0.69 mg/dL (0.55-1.02); EST Glomerular Filtration Rate 98 mL/min (>60); Est Glom Filt Rate - Afr Amer 118 mL/min (>60); Estimated Creatinine Clearance 87.97 ml/min; Glucose 88 mg/dL (74-106); Sodium Level 138 mmol/L (136-145)
[2018-08-19 19:29] LABS: Bacteria RARE /hpf (None Seen)
--- NOTE | 2018-08-19 22:32 | ED.VISSUMM ---
- ER Visit Summary Date of Service: 08/19/18 Chief Complaint: [Headache] History of Present Illness: The patient is a 48 F [presents the emergency department complaint of a headache that started 3 days ago. Patient states the pain came on somewhat suddenly and it was a sharp stabbing pain in the top of her head. Patient had a dull ache since that time that is been continuous with intermittent sharp stabbing pains. Patient rates her headache a 4 out of 10. Patient's had no nausea or vomiting. She denies any photophobia. Patient denies recent illness. She denies any fall or head injury. Patient does have a history of a aneurysm with a stent/coil placed in the left side of her carotid artery about a year ago. Patient has history of mixed connective tissue disorder and lupus. Patient is a diabetic and has history of high cholesterol.] Physical Examination: [HEENT-PERRLA, EOMI. Cranial nerves II through XII grossly intact. TMs clear. Mucous membranes moist. No adenopathy. Cardiovascular-regular rate and rhythm without murmur or ectopy Lungs-clear to auscultation, chest wall stable without crepitus or subcu emphysema Abdomen-normoactive bowel sounds, soft, nontender, no rebound or rigidity, no peritoneal signs. Neuro [id number]-[id number] and heel littlejohn testing within normal limits, negative Romberg, negative pronator drift, fundi benign NIH stroke scale is a 1 given for paresthesias to the right arm. I do not appreciate any obvious weakness. Extremities-intact ?4, normal range of motion, normal pulses, atraumatic] Test Results: [CTA of the head showed a stented and patent left cavernous carotid otherwise nothing acute. CTA of the neck was normal. CBC with differential obtained showed a white count 12.1, hemoglobin 15, hematocrit was 48. Platelet count normal. Chemistries were unremarkable. Urinalysis was normal.] Emergency Department Course and Treatment: [Case was discussed with the patient and results. I discussed case with Dr. Lauro Hubbard who is on-call for neurology. At this point the etiology of her symptoms is unclear. I did give the patient option for admission for further workup and evaluation including MRI of the brain and possible cervical spine to evaluate further. Patient would feel more comfortable following up with her neurologist at the [facility] tomorrow. I feel this is reasonable.] Treatment Plan: [Follow-up with neurology] Disposition: [Discharged home in stable condition] Impression: [Cephalgia Paresthesias] This note was generated with [employer] dictation software. It may contain incorrect words, spelling, and punctuation that were not noted in review of the chart prior to signing ED Disposition - Plan for ED Patient: Referrals: Lazaro Kennedy DO [Primary Care Provider] -
--- NOTE | 2018-08-19 22:37 | ED.DEP ---
ED Disposition - Plan for ED Patient: Instructions: ED Cephalgia Unspecified, ED Paraesthesias Referrals: Lazaro Kennedy DO [Primary Care Provider] - Additional Instructions: See your neurologist in 1-2 days
[2018-08-19 22:51] VITALS: BP 147/80; PULSE 85; RESP 17; O2SAT 96
== END 2018-08-19 22:52 | disposition home or self-care (01) ==
LOC: ED 19:17
PROVIDERS: Emergency Provider Emergency Medicine; Family Provider Student in an Organized Health Care Education/Training Program; PCP Student in an Organized Health Care Education/Training Program
DX: R51 Headache (principal); R20.2 Paresthesia of skin; E11.9 Type 2 diabetes mellitus without complications; E78.00 Pure hypercholesterolemia, unspecified; Z95.828 Presence of other vascular implants and grafts; Z79.4 Long term (current) use of insulin; Z79.82 Long term (current) use of aspirin; Z79.899 Other long term (current) drug therapy
CPT/HCPCS: 70496; 70498; 80048; 81001; 85025; 96360; 96361; 99284; J7030; Q9967; A4216

== ENCOUNTER 2020-07-11 16:58 | Observation (INO) | payer OTHER, SELFPAY ==
[2020-07-11] VITALS (9 sets, daily range): BP systolic 132–164; BP diastolic 66–116; PULSE 65–87; RESP 16–22; TEMP 36–37.2; O2SAT 96–100; BMI 40.3; BMI 41.8
--- NOTE | 2020-07-11 17:13 | EKG12_ITS ---
Test Reason : CP Blood Pressure : / mmHG Vent. Rate : 075 BPM Atrial Rate : 075 BPM P-R Int : 158 ms QRS Dur : 090 ms QT Int : 404 ms P-R-T Axes : 062 002 032 degrees QTc Int : 451 ms Normal sinus rhythm Normal ECG Confirmed by ASHOK LARIOS, NAYLA ([id number]), scientific editor VERENA BALDERRAMA ([id number]) on 07/13/2020 9:33:12 AM Referred By: WHIT Confirmed By:NAYLA PULIDO MD
--- NOTE | 2020-07-11 17:21 | ED.DCSUM_ITS ---
- ER Visit Summary Date of Service: 07/11/20 Chief Complaint: Chest pain History of Present Illness: The patient is a 49 F presenting with chest pain. Patient states this has been intermittent over the past 2 weeks but progressively becoming more frequent. She states the chest pain will come on when she exerts herself or walks upstairs. She complains of midsternal chest pain with radiation to her left jaw. She describes it as a pressure sensation. Currently pain is 0 out of 10, at worst it is 10 out of 10. She has associated shortness of breath and nausea. She has a family history of heart disease unknown age. She is a previous smoker. She has history of hypertension and hypercholesterolemia. She was advised by her primary care physician to come to the emergency department for evaluation. Physical Examination: Vitals are stable. Patient is afebrile. Alert no acute distress. HEENT exam is unremarkable. Neck is supple. Lungs are clear and equal bilaterally. Heart is regular rate and rhythm. Abdomen is soft nontender nondistended. Extremities are unremarkable. Skin is warm and dry. No focal neurologic deficit. Remainder of exam is unremarkable. Emergency Department Course and Treatment: Patient was given aspirin on arrival. EKG is sinus rhythm rate of 75 with no acute ischemic changes. CBC, chemistries unremarkable. Troponin is negative. While in the emergency room patient walked to the bathroom and began having chest pain again. This is relieved with rest. Discussed with hospitalist for observation. Disposition: Observation Impression: Chest pain This note was generated with [employer] dictation software. It may contain incorrect words, spelling, and punctuation that were not noted in review of the chart prior to signing ED Disposition - Plan for ED Patient: Referrals: Lazaro Kennedy DO [Primary Care Provider] -
[2020-07-11] MEDS: Aspirin 81 MG TAB.CHEW 324 MG PO (17:26)
[2020-07-11 17:33] LABS: Absolute Lymphocyte Count 3.53 X10^3/uL (0.83-4.51); Absolute Neutrophil Count 2.4 X10^3/uL (2.0-7.7); Basophil% 1.4 % (0-1); Eosinophil# 0.29 X10^3/uL; Eosinophils% 3.9 % (0-5); Hematocrit 43.4 % (37-47); Hemoglobin 14.2 g/dL (12.0-15.0); Lymphocyte # 3.53 X10^3/ul (4.0); Mean Corp Hgb Conc 32.7 g/dL (32-36); Mean Corpuscular Hgb 28.2 pg (27.0-32.0); Mean Corpuscular Volume 86.1 fL (81-99); Mean Platelet Vol. 9.4 fl (6.2-12.0); Monocyte# 0.97 X10^3/uL; Monocyte% 13.2 % (0-10); NRBC Flagged by Analyzer 0 % (0-5); Neutrophil # 2.44 X10^3/uL (2.7-7.7); Neutrophil % 33.1 % (47-70); Platelet Count 317 K/mm3 (150-450); RBC Distribution Width CV 11.9 % (11.6-14.6); RBC Distribution Width SD 37.6 fl (35.1-43.9); Red Blood Count 5.04 M/mm3 (4.2-5.4); White Blood Count 7.4 K/mm3 (4.4-11.0)
--- NOTE | 2020-07-11 17:45 | RAD_ITS ---
STUDY: X-RAY CHEST REASON FOR EXAM: Female, 49 years old. chest pain TECHNIQUE: Single AP portable view of the chest. COMPARISON: 07/01/2018 FINDINGS: EKG leads overlie the chest The lungs are clear and expanded. There is no demonstrated pleural abnormality. Normal size heart. Normal mediastinum and kaya. Normal visualized pulmonary arteries. Normal visualized aortic arch and descending thoracic aorta. Normal visualized thoracic spine. Normal visualized ribs, clavicles, and shoulders. There is no demonstrated abnormality of the visualized soft tissue structures of the upper abdomen. RAD/Chest 1 View (Portable) IMPRESSION: Normal x-ray examination of the chest. Electronically Signed: Cleveland Veronica MD at 18:24 EST , Service support ,
[2020-07-11 18:00] LABS: Anion Gap 6 (5-15); BUN 16 mg/dL (7-18); BUN/Creat Ratio 20.3 RATIO (10-20); Calcium,Total 8.7 mg/dL (8.5-10.1); Chloride 109 mmol/L (98-107); Creatinine, Serum 0.79 mg/dL (0.55-1.02); EST Glomerular Filtration Rate 83 mL/min (>60); Est Glom Filt Rate - Afr Amer 100 mL/min (>60); Estimated Creatinine Clearance 76.02 ml/min; Glucose 92 mg/dL (74-106); Potassium 3.9 mmol/L (3.5-5.1); Sodium Level 138 mmol/L (136-145)
--- NOTE | 2020-07-11 18:44 | HP.PCM_ITS ---
Problem List (1) Chest pain Status: Acute Qualifiers: Chest pain type: chest pain due to myocardial ischemia Ischemic chest pain type: stable angina pectoris Qualified Code(s): I20.8 - Other forms of angina pectoris (2) Hyperlipidemia Status: Chronic (3) Type 2 diabetes mellitus Status: Chronic History of Present Illness Date of Admission: 07/11/20 Chief Complaint: chest pain The patient is a 49 year old F presents chest pain. Chest pain occurs with exertion and position (lying on sides). Had similar, but less severe chest pain in past in which she had a stress test that was negative at that time. Patient states that she is feeling anxious when she is having chest pain and when I was talking to her she was developing chest pain. She has never had chest pain like this with anxiety before. [] Past Medical History Past Medical History (Chronic Problems): Chronic Problems Type 2 diabetes mellitus (Chronic) Hyperlipidemia (Chronic) Medical History: Medical History (Last Updated 07/11/20 @ 18:[address] Bishop Taylor, DO) DM2 (diabetes mellitus, type 2) E11.9 Fibromyalgia M79.7 Hyperlipidemia E78.5 Lupus (systemic lupus erythematosus) M32.9 Raynaud disease I73.00 Scleroderma M34.9 Allergies atorvastatin calcium [From Lipitor] Allergy (Verified 07/11/20 17:00) Hives lamotrigine [From Lamictal] Allergy (Verified 07/11/20 17:00) Hives midazolam HCl [From Versed] Allergy (Verified 07/11/20 17:00) Other paroxetine [From Paxil] Allergy (Verified 07/11/20 17:00) Rash Penicillins Allergy (Verified 07/11/20 17:00) Hives Home Medications: Ambulatory Orders Medication Instructions Recorded Albuterol IH (ProAir) [Proair Hfa 2 puff INHALATION Q4H PRN PRN 07/01/18 (SP)Vent Pts] Amlodipine [Norvasc] 10 mg PO DAILY 07/01/18 Aspirin 325 mg PO DAILY 07/01/18 Calcium Carbonate/Vitamin D3 1 each PO DAILY 07/01/18 [Caltrate 600 Plus D3 Tablet] Canagliflozin [Invokana] 300 mg PO DAILY 07/01/18 Celecoxib [Celebrex] 200 mg PO BID 07/01/18 Clopidogrel Bisulfate [Clopidogrel] 75 mg PO DAILY 07/01/18 Dulaglutide [Trulicity] 1.5 mg SQ QWEEK 07/01/18 Ergocalciferol (Vitamin D2) 50,000 unit PO WESA 07/01/18 [Vitamin D2] Esomeprazole Magnesium [Nexium] 40 mg PO BID 07/01/18 Fluticasone/Salmeterol [Advair 1 each IH BID 07/01/18 500-50 Diskus] Gabapentin [Neurontin] 200 mg PO DAILY 07/01/18 Gabapentin [Neurontin] 400 mg PO QHS 07/01/18 Glimepiride [Amaryl] 1 mg PO BID 07/01/18 Hydroxychloroquine [Plaquenil] 200 mg PO BIDCM 07/01/18 Insulin Lispro [Humalog] 2 - 20 unit SQ 4X/DAY 07/01/18 Loperamide [Imodium] 2 mg PO ACHS 07/01/18 Magnesium 250 mg PO DAILY 07/01/18 Polyethylene Glycol 3350 [Miralax] 17 gm PO DAILY PRN 07/01/18 busPIRone [Buspar] 5 mg PO TID 07/01/18 cycloBENZAPRine HCl [Flexeril] 10 mg PO TID PRN PRN 07/01/18 Calcium Carb/Vitamin D3/Vit K1 5 each PO DAILY 08/19/18 [Citracal Soft Chew] Glucosam/Chondroit/C/Manganese 1 cap PO TID 08/19/18 [Cosamin Ds Capsule] Metoprolol Succinate 25 mg PO DAILY 07/11/20 Oxcarbazepine 150 mg PO DAILY 07/11/20 Prednisone 10 mg PO DAILY 07/11/20 Surgical History: appendectomy, herniorrhaphy, hysterectomy, - - Lumbar discectomy, tubal ligation Psychiatric History: No pertinent psych hx 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 Denies: Palpitations Respiratory: Reports: Shortness of breath upon exertion. Denies: Cough, Sputum production Gastrointestinal: Denies: Abdominal Pain, Nausea, Vomiting Genitourinary: Denies: Dysuria Musculoskeletal: Denies: Joint Pain, Joint Tenderness Skin: Denies: Rash, Wounds Hematologic/ Lymphatic: Denies: Easy Bruising, Easy Bleeding, Hx of blood clot Comment: All review of systems were negative except as mentioned above in the history of present illness and the other review of systems. VTE Information - Inpt Only VTE Present on Admission: No VTE Mechan Device Prophylaxis: None VTE Pharm Prophylaxis ordered?: No Reason prophylaxis not ordered:: Treatment Not Indicated - Physical Exam Vitals/I&O's: Vital Signs Temp Pulse Resp BP Pulse Ox 37.2 C 77 18 147/76 H 100 07/11/20 18:29 07/11/20 18:29 07/11/20 18:29 07/11/20 18:29 07/11/20 18:29 Oxygen Delivery Method Room Air Weight: 106.594 kg Body Mass Index (BMI) 40.3 General: Alert, Cooperative, No apparent distress, - - Appears older than stated age HEENT: Atraumatic, Normocephalic Oral: Moist Mucosa, No Gingival or Mucosal Lesions/ Ulcerations Neck: No Nodes, Thyroid Normal Size and Texture Lungs: Clear to auscultation, Normal air movement, No rhonchi, No wheeze, No rales Cardiovascular: Regular rate, Regular Rhythm, Normal S1, Normal S2, No murmurs Abdomen: Bowel Sounds Present, Soft, Non Tender, Non-Distended, No Hepato-splenomegaly Extremities: No edema, No Calf Tenderness Skin: No rashes, No breakdown, - - No taut skin on her face nor hands. Musculoskeletal: No Tenderness to Palpation of Joints or Extremities, No Muscle Wasting Psych/Mental Status: Normal Affect, Appropriate Laboratory Results 07/11/20 17:27: WBC 7.4, RBC 5.04, Hgb 14.2, Hct 43.4, MCV 86.1, MCH 28.2, MCHC 32.7, RDW Std Deviation 37.6, RDW Coeff of Jaskaran 11.9, Plt Count 317, MPV 9.4, Immature Gran % (Auto) 0.400, Neut % (Auto) 33.1 L, Lymph % (Auto) 48.0 H, [place] % (Auto) 13.2 H, Eos % (Auto) 3.9, Baso % (Auto) 1.4 H, Absolute Neuts (auto) 2.4, Absolute Lymphs (auto) 3.53, Nucleated RBC % 0 07/11/20 17:27: Sodium 138, Potassium 3.9, Chloride 109 H, Carbon Dioxide 23.0, Anion Gap 6, BUN 16, Creatinine 0.79, Estim Creat Clear Calc 76.02, Est GFR (MDRD) Af Amer 100, Est GFR (MDRD) Non-Af 83, BUN/Creatinine Ratio 20.3 H, Glucose 92, Calcium 8.7, Troponin I 0.023 Chest x-ray reviewed and showed no infiltrate nor edema EKG reviewed and showed normal sinus rhythm with no acute changes. Assessment/Plan All Active Problems Chest pain (Acute) 1. Chest pain: Patient states that it is typically worse with exertion but can occur with changing positions but also just talking to me when she was feeling anxious. EKG and troponins thus far are negative. Plan is for a nuclear stress test on the fifth. Complicating her picture is a history of scleroderma and lupus. Patient is a former smoker. 2. Scleroderma: Patient follows up with a glazier supervisor at the [facility]. Patient does not have any of the classic skin findings that I can easily identify with taut facial features or involving her digits. Follow-up with rheumatology as outpatient. 3. Raynaud's phenomenon: No active issues. Continue with amlodipine. 4. Diabetes mellitus type 2: Continue with glimepiride & scale insulin. Resume dulaglutide and canagliflozin upon discharge 5. SLE: Continue with hydroxychloroquine 6. VTE prophylaxis not indicated as observation status. OBSV E&M: 24934 Initial observation care L2
--- NOTE | 2020-07-11 18:55 | EKG12_ITS ---
Test Reason : CP ADMIT Blood Pressure : / mmHG Vent. Rate : 067 BPM Atrial Rate : 067 BPM P-R Int : 164 ms QRS Dur : 094 ms QT Int : 406 ms P-R-T Axes : 050 -13 016 degrees QTc Int : 429 ms Normal sinus rhythm Confirmed by ASHOK LARIOS, NAYLA ([id number]), health editor VERENA BALDERRAMA ([id number]) on 07/13/2020 9:43:00 AM Referred By: DR GAXIOLA Confirmed By:NAYLA PULIDO MD
--- NOTE | 2020-07-11 19:26 | PCS.PANDOC ---
PANDEMIC DOCUMENTATION INITIATED: Date: 07/08/20 Time: 3024
[2020-07-11] MEDS: busPIRone 5 MG Tablet PO (22:09)
[2020-07-11] MEDS: Pantoprazole Sodium 40 MG Tablet PO (22:10)
[2020-07-11] MEDS: Gabapentin 400 MG Capsule PO (22:10)
[2020-07-11] MEDS: Loperamide 2 MG Capsule PO (22:10)
[2020-07-11] MEDS: LORazepam 1 MG Tablet PO (22:14)
[2020-07-11 22:40] LABS: Bedside Glucose 126 mg/dL (70-110)
[2020-07-11] MEDS: oxyCODONE 5 MG Tablet PO (23:13)
[2020-07-12 03:00] VITALS: PULSE 71
[2020-07-12 05:15] VITALS: BP 115/75; PULSE 74; RESP 16; TEMP 35.7; O2SAT 100
[2020-07-12] MEDS: busPIRone 5 MG Tablet PO (05:40)
[2020-07-12] MEDS: Loperamide 2 MG Capsule PO ×2 (06:30→10:51)
[2020-07-12] MEDS: Clopidogrel Bisulfate 75 MG Tablet PO (06:31)
[2020-07-12] MEDS: Aspirin 325 MG Tablet PO (06:31)
--- NOTE | 2020-07-12 06:36 | EKG12_ITS ---
Test Reason : PRE-STRESS TEST Blood Pressure : / mmHG Vent. Rate : 066 BPM Atrial Rate : 066 BPM P-R Int : 162 ms QRS Dur : 096 ms QT Int : 424 ms P-R-T Axes : 055 -05 022 degrees QTc Int : 444 ms Normal sinus rhythm Normal ECG Confirmed by ASHOK LARIOS, NAYLA ([id number]), index editor VERENA BALDERRAMA ([id number]) on 07/13/2020 9:45:44 AM Referred By: ANGEL Confirmed By:NAYLA PULIDO MD
[2020-07-12 06:55] LABS: Bedside Glucose 74 mg/dL (70-110)
[2020-07-12 07:00] VITALS: PULSE 68
[2020-07-12 07:12] VITALS: O2SAT 97
[2020-07-12 07:13] LABS: Cholesterol 246 mg/dL (200); High Density Lipoprotein 40 mg/dL; Triglycerides 336 mg/dL; Very Low Density Lipoprotein 67 mg/dL (5-40)
[2020-07-12 08:01] LABS: Bedside Glucose 86 mg/dL (70-110)
--- NOTE | 2020-07-12 10:17 | STRESSREP_ITS ---
Stress Test Report Date: Procedure: Pharmacologic stress nuclear imaging study Indications: Chest pain; fibromyalgia; scleroderma; CVA Consent: Per the patient Procedure: The patient underwent pharmacologic (Regadenoson) evaluation with a peak heart rate of 112 beats per minute (64% predicted maximal heart rate) and a peak blood pressure of 132/74 mmHg. The baseline ECG demonstrated normal sinus rhythm. The peak pharmacologic ECG demonstrated no obvious ECG changes. There were no cardiac dysrhythmias pretest, during pharmacologic infusion, or recovery. The patient noted chest/neck discomfort in recovery. The examination was discontinued secondary to completion of protocol. Impression: 1. Pharmacologic (Regadenoson) evaluation 2. Peak pharmacologic ECG with no obvious ECG changes. 3. There were no cardiac dysrhythmias pretest, during pharmacologic infusion, or recovery. 4. Nuclear images pending Myocardial perfusion imaging study: Technique: The patient was injected with 15.0 millicuries of technetium 99m Cardiolite and subsequently rest SPECT Cardiolite nuclear imaging was obtained in the horizontal long, vertical long, and short axis views. The patient underwent pharmacologic (Regadenoson) evaluation with a peak heart rate of 112 beats per minute (64% percent predicted maximal heart rate) and a peak blood pressure of 132/74 mmHg. The patient was injected with 44.3 millicuries of technetium 99m Cardiolite and subsequently stress SPECT Cardiolite nuclear imaging was obtained in the horizontal long, vertical long, and short axis views. A gated Cardiolite study at peak stress was obtained. Interpretation: Rest and stress SPECT Cardiolite nuclear imaging status post realignment, normalization, and attenuation correction demonstrate the appearance of body motion during image acquisition and at rest the appearance of diminished tracer uptake in portions of the mid anterior segments which status post stress appear to improve and/or normalize with similar type findings on resting and stress polar map images. There is an element of diminished end systolic thickening and brightening. The gated Cardiolite study demonstrates an element of diminished myocardial thickening and inward wall motion. The reported LVEF is 44%. Impression: 1. Rest and stress SPECT Cardiolite nuclear imaging demonstrate myocardial perfusion changes appearing compatible with the effects of motion artifact during image acquisition as well as shifting soft tissue attenuation/artifact being more prominent at rest as opposed to stress with no myocardial perfusion changes considered diagnostic for associated stress-induced myocardial ischemia. 2. The gated Cardiolite study reports an LVEF of 44%. This note was generated with [employer] software. It may contain incorrect words, spelling, and punctuation that were not noted in checking the note before signing.
[2020-07-12] MEDS: Calcium Carb/Vitamin D 1 TABLET Tablet PO (10:50)
[2020-07-12] MEDS: predniSONE 10 MG Tablet PO (10:50)
[2020-07-12] MEDS: Hydroxychloroquine 200 MG Tablet PO (10:50)
[2020-07-12] MEDS: Magnesium Chloride 64 MG Delay Rel.Tablet 128 MG PO (10:50)
[2020-07-12 10:51] VITALS: BP 157/85; PULSE 77
[2020-07-12] MEDS: amLODIPine 10 MG Tablet PO (10:51)
[2020-07-12] MEDS: Metoprolol(XL)Succ 25 MG Tablet PO (10:51)
[2020-07-12] MEDS: Pantoprazole Sodium 40 MG Tablet PO (10:55)
[2020-07-12] MEDS: OXcarbazepine 150 MG Tablet PO (10:56)
[2020-07-12 10:57] VITALS: BP 157/85; PULSE 77; RESP 18; TEMP 36.5; O2SAT 98
--- NOTE | 2020-07-12 11:00 | DCINST_ITS ---
- Discharge Diagnoses Current Active Problems: Current Active and Chronic Problems (Last Updated 07/11/20 @ 18:[address] Bishop Taylor, DO) Hyperlipidemia (Chronic) Type 2 diabetes mellitus (Chronic) Chest pain (Acute) You will use the following diet at home:: Cardiac Your food should be the consistency of: Regular Discharge Activity: Return to Normal Activity Weight Bearing Status: Full weight bearing Call your doctor if you observe: Fever of 101 or Higher, Shortness of breath, Dizziness, Fainting spells, Chest pain, Increased palpitations (irregular heartbeat), Uncontrolled pain Allergies/Adverse Reactions: Allergies atorvastatin calcium [From Lipitor] Allergy (Verified 07/11/20 17:00) Hives lamotrigine [From Lamictal] Allergy (Verified 07/11/20 17:00) Hives midazolam HCl [From Versed] Allergy (Verified 07/11/20 17:00) Other paroxetine [From Paxil] Allergy (Verified 07/11/20 17:00) Rash Penicillins Allergy (Verified 07/11/20 17:00) Hives Medications to take at Discharge Albuterol IH (ProAir) [Proair Hfa] 2 puff INHALATION Q4H PRN PRN 07/01/18 Amlodipine [Norvasc] 10 mg PO DAILY 07/01/18 Aspirin 325 mg PO DAILY 07/01/18 Calcium Carbonate/Vitamin D3 [Caltrate 600 Plus D3 Tablet] 1 each PO DAILY 07/01/18 Celecoxib [Celebrex] 200 mg PO BID 07/01/18 Clopidogrel Bisulfate [Clopidogrel] 75 mg PO DAILY 07/01/18 Dulaglutide [Trulicity] 1.5 mg SQ QWEEK 07/01/18 Ergocalciferol (Vitamin D2) [Vitamin D2] 50,000 unit PO WESA 07/01/18 Esomeprazole Magnesium [Nexium] 40 mg PO BID 07/01/18 Fluticasone/Salmeterol [Advair 500-50 Diskus] 1 each IH BID 07/01/18 Hydroxychloroquine [Plaquenil] 200 mg PO BIDCM 07/01/18 Magnesium 250 mg PO DAILY 07/01/18 Polyethylene Glycol 3350 [Miralax] 17 gm PO DAILY PRN 07/01/18 busPIRone [Buspar] 10 mg PO TID 07/01/18 cycloBENZAPRine HCl [Flexeril] 10 mg PO TID PRN PRN 07/01/18 Calcium Carb/Vitamin D3/Vit K1 [Citracal-D3 500 mg Soft Chew] 5 each PO DAILY 08/19/18 Lorazepam [Ativan] 1 mg PO Q6H PRN PRN 07/11/20 Metoprolol Succinate 25 mg PO DAILY 07/11/20 Oxcarbazepine 150 mg PO DAILY 07/11/20 Primary Care Physician: Lazaro Kennedy DO [Primary Care Provider] - Please follow up with your Primary Care Physician in: 1-2 weeks. Test Results: Test results from this visit will be discussed in further detail at your follow- up appointment, if applicable.
--- NOTE | 2020-07-12 11:05 | PHA.DC.MR ---
Pharmacy Service has performed discharge medication reconciliation for this patient. The patient's discharge medication list was reviewed for discrepancies and discrepancies were resolved. Home Medications Albuterol IH (ProAir) [Proair Hfa] 2 puff INHALATION Q4H PRN PRN 07/01/18 Amlodipine [Norvasc] 10 mg PO DAILY 07/01/18 Aspirin 325 mg PO DAILY 07/01/18 Calcium Carbonate/Vitamin D3 [Caltrate 600 Plus D3 Tablet] 1 each PO DAILY 07/01/18 Celecoxib [Celebrex] 200 mg PO BID 07/01/18 Clopidogrel Bisulfate [Clopidogrel] 75 mg PO DAILY 07/01/18 Dulaglutide [Trulicity] 1.5 mg SQ QWEEK 07/01/18 Ergocalciferol (Vitamin D2) [Vitamin D2] 50,000 unit PO WESA 07/01/18 Esomeprazole Magnesium [Nexium] 40 mg PO BID 07/01/18 Fluticasone/Salmeterol [Advair 500-50 Diskus] 1 each IH BID 07/01/18 Hydroxychloroquine [Plaquenil] 200 mg PO BIDCM 07/01/18 Magnesium 250 mg PO DAILY 07/01/18 Polyethylene Glycol 3350 [Miralax] 17 gm PO DAILY PRN 07/01/18 busPIRone [Buspar] 10 mg PO TID 07/01/18 cycloBENZAPRine HCl [Flexeril] 10 mg PO TID PRN PRN 07/01/18 Calcium Carb/Vitamin D3/Vit K1 [Citracal-D3 500 mg Soft Chew] 5 each PO DAILY 08/19/18 Lorazepam [Ativan] 1 mg PO Q6H PRN PRN 07/11/20 Metoprolol Succinate 25 mg PO DAILY 07/11/20 Oxcarbazepine 150 mg PO DAILY 07/11/20
--- NOTE | 2020-07-12 13:04 | PCM.DC.SUM ---
Discharge Date and Diagnosis - Problem List Patient Problems: Active and Suspected Problems (Last Updated 07/11/20 @ 18:[address] Bishop Taylor DO) Chest pain (Acute) Date of Admission: 07/11/20 Date of Discharge: 07/12/20 - Primary Discharge Diagnosis Acute Problems: Active Problems (Last Updated 07/11/20 @ 18:[address] Bishop Taylor DO) Chest pain, ACS ruled out, could be due to GERD. - Secondary Discharge Diagnosis Chronic Problems: Chronic Problems (Last Updated 07/11/20 @ 18:[address] Bishop Taylor DO) Hyperlipidemia (Chronic) Type 2 diabetes mellitus (Chronic) Hospital Course and Treatment Imaging Results: 07/12/20 05:55 Nuclear Stress Test - Chemical [NM] AM (NON MEDS) Clinical Impression(s) from Imaging Studies Chest X-Ray 07/11/20 17:45 IMPRESSION: Normal x-ray examination of the chest. Electronically Signed: Cleveland Veronica MD at 18:24 EST , Service support , . Nuclear stress test result. Impression: 1. Rest and stress SPECT Cardiolite nuclear imaging demonstrate myocardial perfusion changes appearing compatible with the effects of motion artifact during image acquisition as well as shifting soft tissue attenuation/artifact being more prominent at rest as opposed to stress with no myocardial perfusion changes considered diagnostic for associated stress-induced myocardial ischemia. 2. The gated Cardiolite study reports an LVEF of 44%. Operations: None Procedures: EKG, Stress test Summary of Care Provided: The patient is a 49 year old F admitted because of intermittent chest pain that has been going on for 2 weeks for evaluation. Her initial EKG showed normal sinus rhythm without evidence of acute ischemic changes. Troponin was negative x3. Chest x-ray showed no acute findings. Lipid profile revealed total cholesterol of 246, LDL cholesterol of 139 and HDL cholesterol of 40. Patient had a history of GERD and she has been on PPI and she mentioned that she went for upper EGD at outside facility but no ulcers were found. She has been on PPI for a long time. She underwent nuclear stress test that showed no evidence of stress-induced myocardial ischemia. ACS ruled out. Her chest pain could be due to GERD. Patient discharged home in a stable medical condition, discharged on her previous home medications without any changes, recommended follow-up with PCP in 1 to 2 weeks. Patient Problems: Active and Suspected Problems (Last Updated 07/11/20 @ 18:[address] Bishop Taylor, DO) Chest pain (Acute) - Physical Exam Vitals/I&O's: Vital Signs Temp Pulse Resp BP Pulse Ox 97.7 F L 77 18 157/85 H 98 07/12/20 10:57 07/12/20 10:57 07/12/20 10:57 07/12/20 10:57 07/12/20 10:57 Oxygen Flow Rate (L/min) 2 Oxygen Delivery Method Room Air Weight: 244 lb Body Mass Index (BMI) 41.8 Intake and Output for Last 24 Hours 07/10/20 07/11/20 07/12/20 23:59 23:59 23:59 Intake Total 120 / 120 Balance 120 / 120 General: Alert, Oriented x3, Cooperative, No apparent distress HEENT: Atraumatic, PERRLA, EOMI, Normocephalic Oral: Moist Mucosa, No Gingival or Mucosal Lesions/ Ulcerations Neck: Supple, No JVD, Negative Carotid Bruits, Trachea Midline, Thyroid Normal Size and Texture Lungs: Clear to auscultation, Normal air movement, No rhonchi, No wheeze, No rales Cardiovascular: Regular rate, Regular Rhythm, Normal S1, Normal S2, PMI Normal Abdomen: Bowel Sounds Present, Soft, Non Tender, Non-Distended, No Hepato-splenomegaly Extremities: No clubbing, No cyanosis, No edema Skin: No rashes, No breakdown Lymphatic: No Cervical, Supraclavicular, or Inguinal Adenopathy Neurological: Cranial nerves II-XII grossly intact, Neuro grossly intact Psych/Mental Status: Normal Affect, Appropriate Laboratory Results 07/11/20 17:27: WBC 7.4, RBC 5.04, Hgb 14.2, Hct 43.4, MCV 86.1, MCH 28.2, MCHC 32.7, RDW Std Deviation 37.6, RDW Coeff of Jaskaran 11.9, Plt Count 317, MPV 9.4, Immature Gran % (Auto) 0.400, Neut % (Auto) 33.1 L, Lymph % (Auto) 48.0 H, [place] % (Auto) 13.2 H, Eos % (Auto) 3.9, Baso % (Auto) 1.4 H, Absolute Neuts (auto) 2.4, Absolute Lymphs (auto) 3.53, Nucleated RBC % 0 07/11/20 17:27: Sodium 138, Potassium 3.9, Chloride 109 H, Carbon Dioxide 23.0, Anion Gap 6, BUN 16, Creatinine 0.79, Estim Creat Clear Calc 76.02, Est GFR (MDRD) Af Amer 100, Est GFR (MDRD) Non-Af 83, BUN/Creatinine Ratio 20.3 H, Glucose 92, Calcium 8.7, Troponin I 0.023 07/11/20 20:00: Troponin I 0.024 07/11/20 22:17: POC Glucose 126 H 07/11/20 23:11: Troponin I 0.024 07/12/20 05:35: Triglycerides 336 H, Cholesterol 246 H, LDL Cholesterol 139 H, VLDL Cholesterol 67 H, HDL Cholesterol 40 07/12/20 06:34: POC Glucose 74 07/12/20 07:54: POC Glucose 86 Discharge Activity: Return to Normal Activity Weight Bearing Status: Full weight bearing Call your doctor if you observe: Fever of 101 or Higher, Shortness of breath, Dizziness, Fainting spells, Chest pain, Increased palpitations (irregular heartbeat), Uncontrolled pain Home Medications: Medications to take at Discharge Albuterol IH (ProAir) [Proair Hfa] 2 puff INHALATION Q4H PRN PRN 07/01/18 Amlodipine [Norvasc] 10 mg PO DAILY 07/01/18 Aspirin 325 mg PO DAILY 07/01/18 Calcium Carbonate/Vitamin D3 [Caltrate 600 Plus D3 Tablet] 1 each PO DAILY 07/01/18 Celecoxib [Celebrex] 200 mg PO BID 07/01/18 Clopidogrel Bisulfate [Clopidogrel] 75 mg PO DAILY 07/01/18 Dulaglutide [Trulicity] 1.5 mg SQ QWEEK 07/01/18 Ergocalciferol (Vitamin D2) [Vitamin D2] 50,000 unit PO WESA 07/01/18 Esomeprazole Magnesium [Nexium] 40 mg PO BID 07/01/18 Fluticasone/Salmeterol [Advair 500-50 Diskus] 1 each IH BID 12/25/18 Hydroxychloroquine [Plaquenil] 200 mg PO BIDCM 07/01/18 Magnesium 250 mg PO DAILY 07/01/18 Polyethylene Glycol 3350 [Miralax] 17 gm PO DAILY PRN 07/01/18 busPIRone [Buspar] 10 mg PO TID 07/01/18 cycloBENZAPRine HCl [Flexeril] 10 mg PO TID PRN PRN 07/01/18 Calcium Carb/Vitamin D3/Vit K1 [Citracal-D3 500 mg Soft Chew] 5 each PO DAILY 08/19/18 Lorazepam [Ativan] 1 mg PO Q6H PRN PRN 07/11/20 Metoprolol Succinate 25 mg PO DAILY 07/11/20 Oxcarbazepine 150 mg PO DAILY 07/11/20 Primary Care Physician: Lazaro Kennedy DO [Primary Care Provider] - Please follow up with your Primary Care Physician in: 1-2 weeks. Disposition: Home Minutes spent on discharge:: 24 Patient Condition:: Stable Medical Necessity - Tobacco Use Smoking Status: Former smoker Meaningful Use Info Meaningful Use Diagnoses (Choose all that apply): None applicable OBSV E&M: 96942 Observation care discharge
== END 2020-07-12 11:00 | disposition home or self-care (01) ==
LOC: ED 17:33 → PCU 19:10
PROVIDERS: Emergency Provider Emergency Medicine; PCP Student in an Organized Health Care Education/Training Program; Visit Provider Hospitalist
DX: R07.89 Other chest pain (principal); R06.02 Shortness of breath; I10 Essential (primary) hypertension; E78.5 Hyperlipidemia, unspecified; E11.9 Type 2 diabetes mellitus without complications; R11.0 Nausea; I73.00 Raynaud's syndrome without gangrene; M32.9 Systemic lupus erythematosus, unspecified; M79.7 Fibromyalgia; M34.9 Systemic sclerosis, unspecified; Z79.899 Other long term (current) drug therapy; Z79.82 Long term (current) use of aspirin; Z79.02 Long term (current) use of antithrombotics/antiplatelets; Z82.49 Family history of ischemic heart disease and other diseases of the circulatory system; Z87.891 Personal history of nicotine dependence; F41.9 Anxiety disorder, unspecified; Z79.51 Long term (current) use of inhaled steroids; Z79.4 Long term (current) use of insulin
CPT/HCPCS: 36415; 71045; 78452; 80048; 80061; 82962; 84484; 85025; 93005; 93017; 99218; 99284; A9500; A4216; G0378; J2785

== ENCOUNTER → 2020-09-07 08:10 | Outpatient (CLI) | payer OTHER, SELFPAY ==
[2020-07-11 19:04] VITALS: BMI 41.8
--- NOTE | 2020-09-07 08:23 | MRI_ITS ---
STUDY: MRA OF THE HEAD WITHOUT CONTRAST REASON FOR EXAM: Female, 50 years old. NON RUPTURED CEREBRAL ANEURYSM, VISUAL CHANGES, VISION LOSS LEFT TECHNIQUE: 3-D [id number] (TOF) imaging was performed with MIPs. The study was performed unenhanced. COMPARISON: 08/19/2018 CTA FINDINGS: Normal right cavernous carotid artery with a normal supraclinoid bifurcation. Again noted is the left cavernous carotid artery stent placement with decreased flow signal. There is patent superior retinal artery. There is no demonstrated aneurysm. Normal right A1 segments of the anterior cerebral artery. 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 Normal intact anterior communicating artery (ACOM). Normal bilateral A2 segments of the anterior cerebral arteries. Normal right M1 and M2 segments of the middle cerebral arteries, with a normal M1 bifurcation. Normal left M1 and M2 segments of the middle cerebral arteries, with a normal M1 bifurcation. Normal right posterior communicating artery (PCOM). Normal left posterior communicating artery (PCOM). Normal basilar artery with a normal basilar bifurcation. The visualized bilateral superior cerebellar (SCA) arteries are normal. Normal bilateral posterior cerebral arteries. MRI/MRA Head ONLY without Contrast IMPRESSION: Decreased flow signal at the left cavernous carotid artery stent. Stenosis or occlusion cannot be excluded. Further evaluation with CTA can be obtained. No evidence of residual or recurrent aneurysm. Patent left ophthalmic artery. Electronically Signed: Beau Lee MD at 9:41 EST Tel , Service support ,
== END ==
PROVIDERS: PCP Student in an Organized Health Care Education/Training Program; Referring Provider Student in an Organized Health Care Education/Training Program; Visit Provider Student in an Organized Health Care Education/Training Program
DX: I67.1 Cerebral aneurysm, nonruptured (principal); T82.856D Stenosis of peripheral vascular stent, subsequent encounter; Z98.890 Other specified postprocedural states; Z86.79 Personal history of other diseases of the circulatory system; M35.1 Other overlap syndromes; H53.9 Unspecified visual disturbance; H54.62 Unqualified visual loss, left eye, normal vision right eye
CPT/HCPCS: 70544

== ENCOUNTER 2020-12-14 20:43 | Emergency (ER) | payer OTHER, SELFPAY ==
[2020-07-11 19:04] VITALS: BMI 41.8
[2020-12-14 20:44] VITALS: BP 102/75; PULSE 81; RESP 18; TEMP 37.1; O2SAT 99; BMI 36.6
--- NOTE | 2020-12-14 20:49 | ED.VIS.LOWEX ---
HPI History of Present Illness Chief Complaint: Lower Extremity Injury Detail of Chief Complaint: Right ankle Informant: patient Occured/Mechanism Mechanism/Context: Yes injury Comment: Rolled ankle and landed on it Onset/Context/Timing Onset: Hours (Approximately 4 to 5 hours ago) Context: Sudden Onset Timing: Continuous Quality of Pain: Dull, Aching and Throbbing Current Severity: Moderate Maximum Severity: Severe Worsened by: Movement and weightbearing Relieved by: Nothing Associated Symptoms Associated Symptoms: Positive for Loss of Funtion; Negative for Parasthesia and Weakness Narrative Narrative: Patient is a 50-year-old woman who presents with injury to her right ankle. She had a plantar inversion mechanism injury. She states she landed on the ankle. She complains of pain laterally. She is on aspirin and Plavix. She has a clotting disorder as well as prior stroke. She denies paresthesia, anesthesia medics. She denies prior injury to the ankle. She denies knee pain or hip pain. She has no other complaints. Prior similar symptoms: No Recent Illness/Hospitalization: No PFSH PFS Medical History (Updated 12/14/20 @ 21:[address] Bobo Benavidez MD) Anxiety Asthma Bipolar disorder Coronary artery disease DM2 (diabetes mellitus, type 2) Fibromyalgia Fibromyalgia GERD (gastroesophageal reflux disease) Hyperlipidemia Hypertension Lung disease with systemic sclerosis Lupus (systemic lupus erythematosus) Raynaud disease Restless leg syndrome Scleroderma Stroke/cerebrovascular accident Trigeminal neuralgia of left side of face Home Medications Magnesium 250 mg PO DAILY 07/01/18 [History Last Taken Unknown] albuterol sulfate [ProAir HFA] 2 puff INHALATION Q4H PRN PRN 07/01/18 [History Last Taken Unknown] amlodipine 10 mg PO DAILY 07/01/18 [History Last Taken Unknown] aspirin 325 mg PO DAILY 07/01/18 [History Last Taken Unknown] buspirone 10 mg PO TID 07/01/18 [History Last Taken Unknown] calcium carbonate-vitamin D3 [Caltrate with Vitamin D3] 1 ea PO DAILY 07/01/18 [History Last Taken Unknown] celecoxib 200 mg PO BID 07/01/18 [History Last Taken Unknown] clopidogrel 75 mg PO DAILY 07/01/18 [History Last Taken Unknown] cyclobenzaprine 10 mg PO TID PRN PRN 07/01/18 [History Last Taken Unknown] dulaglutide [Trulicity] 1.5 mg SQ QWEEK 07/01/18 [History Last Taken Unknown] ergocalciferol (vitamin D2) [Vitamin D2] 50,000 unit PO WESA 07/01/18 [History Last Taken Unknown] esomeprazole magnesium [Nexium Packet] 40 mg PO BID 07/01/18 [History Last Taken Unknown] fluticasone propion-salmeterol [Advair Diskus] 1 ea IH BID 07/01/18 [History Last Taken Unknown] hydroxychloroquine 200 mg PO BIDCM 07/01/18 [History Last Taken Unknown] polyethylene glycol 3350 17 g PO DAILY PRN 07/01/18 [History Last Taken Unknown] calcium-vitamin D3-vitamin K [Citracal-D3 Soft Chew] 5 ea PO DAILY 08/19/18 [History Last Taken Unknown] lorazepam 1 mg PO Q6H PRN PRN 07/11/20 [History Last Taken Unknown] metoprolol succinate 25 mg PO DAILY 07/11/20 [History Last Taken Unknown] oxcarbazepine 150 mg PO DAILY 07/11/20 [History Last Taken Unknown] hydrocodone-acetaminophen 1 tab PO Q6H PRN PRN 3 Days #10 tablet 12/14/20 [Rx Last Taken Unknown] Allergy/AdvReac Type Severity Reaction Status Date / Time atorvastatin calcium Allergy Hives Verified 12/14/20 20:45 [From Lipitor] lamotrigine [From Lamictal] Allergy Hives Verified 12/14/20 20:45 midazolam HCl [From Versed] Allergy Other Verified 12/14/20 20:45 paroxetine [From Paxil] Allergy Rash Verified 12/14/20 20:45 Penicillins Allergy Hives Verified 12/14/20 20:45 Surgical History (Updated 12/14/20 @ 20:58 by Daylin Omer) History of cerebral aneurysm repair History of coronary artery stent placement Social History (Updated 12/14/20 @ 20:[address] Bobo Benavidez MD) household members: spouse housing: house Smoking Status: Former smoker alcohol intake: current alcohol intake frequency: other substance use type: does not use ROS ROS ED Musculoskeletal Musculoskeletal: Denies arthralgias, back pain, myalgias or neck pain Neurologic Neurologic: Denies paresthesias or weakness Psychiatric Psychiatric: Denies anxiety or depression Hematologic/Lymphatic Hematologic/Lymphatic: Reports easy bruising; Denies easy bleeding Allergic/Immunologic Allergic/Immunologic ED: Denies urticaria EXAM Physical Exam Const Vital Signs: 12/14/20 20:44 Temperature 98.7 F Temperature Source Temporal Pulse Rate 81 Respiratory Rate 18 Blood Pressure 102/75 Blood Pressure Mean 84 Pulse Ox 99 Oxygen Delivery Method Room Air Positive well nourished, well developed and obese General Appearance ED: well developed Nutritional Appearance: obese HEENT normocephalic and atraumatic Eyes PERRL Eyes Narrative: Extract muscle intact. Sclerae anicteric. There is no subconjunctival hemorrhage noted. Neck full ROM Resp normal respiratory effort Cardio regular rate and regular rhythm Extremity Negative for normal to inspection or full ROM Extremity Narrative: There is swelling over the lateral malleolus. The distal posterior 3 cm is tender to palpation. There is no pain the patient of the medial malleolus. Is no lax with drawer testing. There is no pain the patient at the base of the fifth metatarsal. DP and PT pulse are palpable. General Extremety ED: Yes weight-bearing difficulty; Negative for cyanosis or edema General Extremity: weight-bearing difficulty; Negative for cyanosis or edema Neuro oriented x3, CN's II-XII intact bilaterally, moves all extremities and no sensory deficits noted Sensorium / Orientation: alert Psych mental status grossly normal Skin Lesions: no lesions Rashes: no rashes Trauma: other Hematoma over the lateral malleolus MDM MDM MDM Narrative Medical decision making narrative: Patient was medicated with NSAID and opiate analgesia and x-ray of the ankle was obtained to evaluate for sprain versus fracture. Radiography X-Ray: - (Three-view x-ray of the right ankle was performed and interpreted by me to reveal a small avulsion fracture tip of the lateral malleolus consistent with an avulsion fracture. This was treated as an ankle sprain. Time of interpretation 2109.) Treatment and Re-Evaluation Comments:: Aircast Discharge Plan Triage Chief Complaint: Lower Extremity Injury ED Provider: Bobo Benavidez Dx/Rx/DC Orders Clinical Impression: Avulsion fracture of lateral malleolus of right fibula Instructions: ED Ankle Fracture Prescriptions: New hydrocodone-acetaminophen [hydrocodone-acetaminophen] 1 TABLET tablet 1 tab PO Q6H PRN PRN (Reason: Pain) 3 Days Qty: 10 RF: 0 No Action celecoxib 200 MG capsule 200 mg PO BID RF: 0 cyclobenzaprine 10 MG tablet 10 mg PO TID PRN PRN (Reason: muscle spasms) RF: 0 buspirone 5 MG tablet 10 mg PO TID RF: 0 polyethylene glycol 3350 17 GM powder in packet 17 g PO DAILY PRN (Reason: Constipation) RF: 0 aspirin 325 MG tablet 325 mg PO DAILY RF: 0 clopidogrel 75 MG tablet 75 mg PO DAILY RF: 0 amlodipine 10 MG tablet 10 mg PO DAILY RF: 0 fluticasone propion-salmeterol [Advair Diskus] 1 EACH blister with device 1 ea IH BID RF: 0 ergocalciferol (vitamin D2) [Vitamin D2] 50,000 UNIT capsule 50,000 unit PO WESA RF: 0 hydroxychloroquine 200 MG tablet 200 mg PO BIDCM RF: 0 albuterol sulfate [ProAir HFA] 1 PUFF inhaler 2 puff inhalation Q4H PRN PRN (Reason: Sob &/Or Wheezing) RF: 0 esomeprazole magnesium [Nexium Packet] [address] for susp in packet 40 mg PO BID RF: 0 calcium carbonate-vitamin D3 [Caltrate with Vitamin D3] 1 EACH tablet 1 ea PO DAILY RF: 0 dulaglutide [Trulicity] 1.5 MG/0.5 ML pen injector 1.5 mg SQ QWEEK RF: 0 Magnesium 250 MG tablet 250 mg PO DAILY RF: 0 calcium-vitamin D3-vitamin K [Citracal-D3 Soft Chew] 1 EACH tablet,chewable 5 ea PO DAILY RF: 0 oxcarbazepine 150 MG tablet 150 mg PO DAILY RF: 0 metoprolol succinate 25 MG tablet extended release 24 hr 25 mg PO DAILY RF: 0 lorazepam 1 MG tablet 1 mg PO Q6H PRN PRN (Reason: Anxiety) RF: 0 Primary Care Provider: Lazaro Kennedy Referrals: Lazaro Kennedy DO [Primary Care Provider] - Jigar Russell DO [STAFF PHYSICIAN] - 1 Week Disposition Disposition: Home, self care
--- NOTE | 2020-12-14 20:58 | RAD_ITS ---
HISTORY: Trauma, injury/Pain EXAMINATION/TECHNIQUE: XR Ankle Min 3 Views: COMPARISON: 09/15/16 FINDINGS: BONES/JOINTS: No acute fracture or dislocation. Preservation of the joint spaces. No sclerotic or destructive changes observed. Small plantar calcaneal spur. SOFT TISSUES: Mild lateral ankle swelling. No radiopaque foreign body. RAD/Ankle min 3 Views IMPRESSION: No acute bony abnormality. at 2139 Reported and signed by: Junior Palma MD Electronically Signed: Junior Palma MD at 21:38 EDT Tel , Service support ,
[2020-12-14] MEDS: HYDROcodone Bitartrate/Apap 5/325 Tablet PO (21:05)
[2020-12-14] MEDS: Naproxen 500 MG Tablet PO (21:05)
[2020-12-14 21:52] VITALS: RESP 16
== END 2020-12-14 22:02 | disposition home or self-care (01) ==
PROVIDERS: Emergency Provider Emergency Medicine; PCP Student in an Organized Health Care Education/Training Program
DX: S82.61XA Displaced fracture of lateral malleolus of right fibula, initial encounter for closed fracture (principal); X50.1XXA Overexertion from prolonged static or awkward postures, initial encounter; Y93.9 Activity, unspecified; Y92.9 Unspecified place or not applicable; Y99.9 Unspecified external cause status; E11.9 Type 2 diabetes mellitus without complications; E78.5 Hyperlipidemia, unspecified; F31.9 Bipolar disorder, unspecified; F41.9 Anxiety disorder, unspecified; I10 Essential (primary) hypertension; I25.10 Atherosclerotic heart disease of native coronary artery without angina pectoris; J45.909 Unspecified asthma, uncomplicated; K21.9 Gastro-esophageal reflux disease without esophagitis; M32.9 Systemic lupus erythematosus, unspecified; I73.00 Raynaud's syndrome without gangrene; Z79.1 Long term (current) use of non-steroidal anti-inflammatories (NSAID); Z79.51 Long term (current) use of inhaled steroids; Z79.82 Long term (current) use of aspirin; Z86.73 Personal history of transient ischemic attack (TIA), and cerebral infarction without residual deficits; Z87.891 Personal history of nicotine dependence
CPT/HCPCS: 73610; 99284

== ENCOUNTER → 2023-01-18 | Outpatient (CLI) | payer OTHER, SELFPAY ==
--- NOTE | 2023-01-18 14:13 | PCM.CR.HP2 ---
CR - History & Physical General Arrival date:: 01/18/23 Arrival time:: 14:13 Date of Referral:: 01/07/23 Date of CR Evaluation:: 01/18/23 Referring Physician: Dr. Allan Redman Primary Diagnosis: CABG History of Present Cardiac Event Onset Date Coronary Artery Bypass Graft:: Yes Vessel: díaz-lad, svg-diag 1, om1 pda Medications Ambulatory Orders Medication Instructions Recorded Magnesium 250 mg PO DAILY supplement 07/01/18 albuterol sulfate 90 mcg/actuation 2 puff inhalation Q4H PRN PRN Sob 07/01/18 aerosol inhaler (ProAir HFA) &/Or Wheezing amlodipine 10 mg tablet 10 mg PO DAILY blood pressure 07/01/18 aspirin 325 mg tablet 325 mg PO DAILY heart health 07/01/18 buspirone 5 mg tablet 10 mg PO TID mental health 07/01/18 calcium carbonate 600 mg-vitamin 1 ea PO DAILY supplement 07/01/18 D3 20 mcg (800 unit) tablet (Caltrate with Vitamin D3) celecoxib 200 mg capsule 200 mg PO BID pain 07/01/18 clopidogrel 75 mg tablet 75 mg PO DAILY anti platelet 07/01/18 cyclobenzaprine 10 mg tablet 10 mg PO TID PRN PRN muscle spasms 07/01/18 dulaglutide 1.5 mg/0.5 mL 1.5 mg SQ QWEEK diabetes 07/01/18 subcutaneous pen injector (Trulicity) ergocalciferol (vitamin D2) 1,250 50,000 unit PO WESA vitamin 07/01/18 mcg (50,000 unit) capsule (Vitamin D2) esomeprazole magnesium 40 mg 40 mg PO BID reflux 07/01/18 granules delayed release for susp (Nexium Packet) fluticasone 500 mcg-salmeterol 50 1 ea IH BID breathing 07/01/18 mcg/dose blistr powdr for inhalation (Advair Diskus) hydroxychloroquine 200 mg tablet 200 mg PO BIDCM inflammation 07/01/18 polyethylene glycol 3350 17 gram 17 g PO DAILY PRN Constipation 07/01/18 oral powder packet calcium-vitamin D3-vitamin K 500 5 ea PO DAILY vitamin 08/19/18 mg-1,000 unit-40 mcg chewable tablet (Citracal-D3 Soft Chew) lorazepam 1 mg tablet 1 mg PO Q6H PRN PRN Anxiety 07/11/20 metoprolol succinate 25 mg 25 mg PO DAILY blood pressure 07/11/20 tablet,extended release 24 hr oxcarbazepine 150 mg tablet 150 mg PO DAILY seizures 07/11/20 hydrocodone-acetaminophen 5-325mg 1 tab PO Q6H PRN PRN Pain 3 days 12/14/20 5mg-325mg #10 TABLETS Allergies Allergies atorvastatin calcium [From Lipitor] Allergy (Verified 12/14/20 20:45) Hives lamotrigine [From Lamictal] Allergy (Verified 12/14/20 20:45) Hives midazolam HCl [From Versed] Allergy (Verified 12/14/20 20:45) Other paroxetine [From Paxil] Allergy (Verified 12/14/20 20:45) Rash Penicillins Allergy (Verified 12/14/20 20:45) Hives Sleep Disorder Evaluation Hx of Sleep Apnea: Yes Do you snore loudly (louder than talking or can be heard through closed doors)?: No Do you often feel tired/ fatigued/ sleepy during daytime?: No History of Hypertension (for STOP score): No Advanced Directives Advanced Directives Power of Aircraft Ordnance Technician: Yes Living Will: Yes Advance Directives Information Provided: Yes Advance Directives on File: Yes DNR Order?:: Yes Past Medical History Covid-19 Screening Physicial Symptoms Other Clinical Concerns Exposure Risk Pertinent Comorbidities Has a chronic lung disease or moderate to severe asthma:: Yes Has a serious heart condition:: Yes Diabetic:: Yes Past Medical Illness Past Medical History (Updated 12/14/20 @ 21:[address] Bobo Benavidez MD) Anxiety F41.9 Asthma J45.909 Bipolar disorder F31.9 Coronary artery disease I25.10 DM2 (diabetes mellitus, type 2) E11.9 Fibromyalgia M79.7 Fibromyalgia M79.7 GERD (gastroesophageal reflux disease) K21.9 Hyperlipidemia E78.5 Hypertension I10 Lung disease with systemic sclerosis M34.81 Lupus (systemic lupus erythematosus) M32.9 Raynaud disease I73.00 Restless leg syndrome G25.81 Scleroderma M34.9 Stroke/cerebrovascular accident I63.9 Trigeminal neuralgia of left side of face G50.0 Past Surgical History Past Surgical History (Updated 12/14/20 @ 20:58 by Daylin Wigal) History of cerebral aneurysm repair Z98.890, Z86.79 History of coronary artery stent placement Z95.5 Surgical History: appendectomy, herniorrhaphy, hysterectomy and - (Lumbar discectomy, tubal ligation) Social History Smoking History Smoking Status: Former smoker (stopped 8 y ears ago) Years Smokin Packs Smoked per Day: 2 Alcohol Use Alcohol Usage: No Occupation Occupation (List type of work in comments):: Unemployed Hobbies, Recreation, Social Activities Hobbies: Reading and Other Recreational Activities: I am able to engage in most, but not all activities Social Environment Status Marital Status: Current Living Arrangements Living Environment:: Family Children How many children do you have?: 6 Do any of your children live nearby?: Yes Safety Do you feel safe in your surroundings?: Yes Assistance Do you need any assistance at home?: no Risk Factor Assessment Vital Signs Respiratory Rate: 16 Pulse Ox: 98 Blood Pressure: 120/70 Pulse Pulse Rate: 72 Diabetes Diabetic History: Type II Nutrition Referral for Diabetes: No Obesity Height: 5 ft 5 in Weight:: 247 lb Weight in Pounds: 247.0 lbs Body Mass Index (BMI): 41.1 Nutritional Referral for Obesity: No Physical Inactivity Physical Inactivity: None Risk Stratification Risk Guidelines: Moderate Risk: Risk Factor for Hypertension and Highest Risk: Risk Factor for Smoking, Risk Factor for Dyslipidemia, Risk Factor for Diabetes, Risk Factor for Obesity, Risk Factor for Sedentary Lifestyle and Risk Factor for Depression For Smoking Smoking Risk Guidelines For Dyslipidemia Dyslipidemia Risk Guidelines For Diabetes Mellitus Diabetes Risk Guidelines For Obesity/Overweight Obesity/Overweight Risk Guidelines For Hypertension Hypertension Risk Guidelines For Sedentary Lifestyle Sedentary Lifestyle Risk Guidelines For Depression Depression Risk Guidelines Motivation Motivation to Participate On a scale of 1 to 10, how prepared are you to commit to attending program?: 6 What do you see as barriers to successfully being able to complete the program?: physical limitations What do you see as the benefits of succesfully completing the program? In other words, what do you hope to get out of participating in the program?: back in shape Are there issues you are dealing with that will interfere with completing the program?: physical limitations Do you have a spouse or signficant other, family or friends who will help support you to complete the program?: yes
[2023-01-18 14:25] VITALS: BP 120/70; PULSE 72; RESP 16; O2SAT 98
--- NOTE | 2023-01-18 14:25 | PCM.CR.ITP ---
Diagnosis General Information Admitting Diagnosis: CABG Personal Learning Style:: Audio/Visual, Demonstration, Group, Individual Preference and Written Barriers to Learning: No Barriers Stage of change r/t lifestyle modifications:: Contemplation Gave educational material for:: Treating Heart Disease, How The Heart Works, What it means to have Heart Disease, How Coronary Artery Disease is Diagnosed, Heart Procedures, What Heart Medications Do, Risk Factors & Modifications, Living an Active Life, Nutrition, Emotions & Heart Disease, Stress Management & Relaxation and Sleep Disorders & Heart Disease Education/Goals Cardiac Rehabilitation Goals Personal Goals: Initial Assessment: Improve management of stress and emotions, Improve energy level, Participate in home exercise program, Get back to work, or to resume activities faster, Improve knowledge of cardiac disease, Improve muscle strength and endurance, Improve diet and eating habits (eat healthier) and Control risk factors (learn risk factor modification) Scale for measuring improvement of personal goals Diagnosis & Disease Process Outcomes/Goals: Pt IDs own risk factors & lifestyle modifications by Session 10, Verbalizes symptoms of angina & response by session 3., Pt independently manages and Other Additional Outcomes/Goals: Plan/Interventions: Assist Pt to ID & engage in lifestyle modification to reduce CVD risk, Instruct on individual risk factors, Review symptoms of angina & emergency actions, Review secondary diagnosis & identify educational needs. and Other see comment 30 day Reassessments:: Not Met 30 day Reassessments:: Not Met 30 day Reassessments:: Not Met 30 day Reassessments:: Not Met Final Reassessments:: Not Met Safety Referral to Physical Therapy: No Referral to [facility] Case Management: No Fall Risk Assessed:: Yes Assistive Devices:: None Exercise - Initial Assessment Visit Date of Eval: 01/18/23 (initial eval ) Mets: Pre-: >3 METS for 30 minutes by discharge, >5 METS for 30 minutes by discharge, >7 METS for 30 minutes by discharge and Unable to meet goal due to: (see comment below) Physician Prescribed Exercise Modalities: Treadmill, Rower, Airdyne, NuStep, SciFit and Lateral [employer] Frequency: 2x/week for 18 weeks [36 sessions] Intensity: 60-80% of age predicted maximum heart rate reserve Current METSs:: 3 Target Heart Rate:: 110-127 Resting Blood Pressure: 120/70 EKG Type: NSR Outcomes & Goals Goals:: Verbalizes understanding of THR, RPE & goal METS by session 6, Documents in home exercise log/reports 30 min aerobic 5 day/wk by DC, Demonstrates accurate pulse taking by DC and Other additional outcome/goals: see below Intervention & Plan Exercise Program Goals: Instruct on personal THR & RPE, Instruct on MET level & personal MET goal, Show patient to take own pulse /validate performance until accurate, Instruct on home exercise and Other additional plan/int Physical Activity Home Exercise Physical Activity - Home Exercise: Safe Exercise, Warm-up, Self-monitoring, Cool-Down, Home Exercise > 30 min Daily and Sitting Time <3 hours/daily Outcomes & Goals Outcomes/Goals: Demonstrates correct Warm-up/exercise Cool-Down (S3) if = 2.5 METs, Verbalizes symptoms of exercise intolerance by Session 3 (S3), Demonstrate safe equipment use (S3) & follows exercise prescrition (6) and Other: See below Intervention & Plan Plan/Intervention: Instruct warm-up & cool-down if exercising at > 2 METs, Instruct on symptoms of exercise intolerance & actions to take, Instruct & monitor on saf, Assess intial functional capacity & safety risk and Other See below Nutrition - Initial Assessment Program Goals Nutrition Program Goals Patient has diagnosis of Hyperlipidemia (ICD E78)?: Yes Visit Date of Eval: 01/18/23 (initial eval ) Cholesterol/Lipids (Other Core Measures) Determine presence & major risk factors that modify LDL goal: Cigarette smoking, Hypertension or hypertensive medication, Low HDL cholesterol <40 mg/dL*, Family history of premature CHD in Male < 55 years: female <65 yearsFa and Age men > 45 years; women >/= 55 years Outcomes/Goals: Pt IDs own risk factors & lifestyle modifications by Session 10, Verbalizes symptoms of angina & response by session 3., Pt independently manages and Other Additional Outcomes/Goals: Intervention/Plan: Advocate for lipid panel cholesterol medication if applicable, Instruct on personal lipid levels & lipid goals/NCEP guidelines, Instruct on cholesterol and Other additional plan/int Referral to dietitian:: Yes Diabetes (Other Core Measures) Diabetes Type: Diagnosis Type II ICD-10 E11 Insulin dependent injection/pump?: No Referral to Diabetic Clinic:: Yes Outcomes/Goals:: Able to state symptoms of, Able to state, Able to state and Other additional Intervention/Plan:: Instruct on, Refer to, Instruct on and Other Weight Mgt (Other Care) Height: 5 ft 4 in Weight:: 247 lb BMI: 42.4 Diagnosis Overweight/Obesity BMI> 30% ICD-10 E66: Yes Diagnosis High BMI/Morbid Obesity BMI> 35% ICD-10 Z68: Yes Intervention/Plan: Instruct on ideal BMI & set weight loss goal w/patient, Assist pt to ID & incorporate diet changes for weight loss by S9, Refer to Structured Weight Loss program as appropriate, Encourage goal of using 250-300dcal per session for weight loss and Other additional plan/interventions Healthy Eating Habits Will attend diet classes:: Yes Outcomes/Goals:: Consume diet rich in vegs,fruits,whole grain/high fiber,fish,lean meat, Limit sat/trans fats,cholesterol & added salts & sugars and Other additional outcome/goals: Intervention/Plan:: Assess current eating habits and Other Additional plan/interventions Education Gave educational materials for:: Signs & symptoms of hypoglycemia, Signs & symptoms of hyperglycemia, Relate diabetes to coronary artery disease and Healthy eating Core - Initial Assessment Visit Date of Eval: 01/18/23 (initial eval ) Medication Compliance Preventative Medication(s):: Aspirin, Statin/lipid and Beta jose H/O mental health issues: depression, anxiety, or addiction?: Yes Doesn?t believe in the benefits of treatment?: No Believes medications are unnecessary or harmful?: No Has a concern about medication side effects?: No Expresses concern over the cost of medications?: No Outcomes/Goals: Verbalizes medications,desired effect & common side effects @ DC, Pt self-reports following medication regimen, Keeps card in wallet w/medications listed by DC and Other additional outcome/goals: Interventions/plans: Instruct on medication effects & side effects, Review medication list w/patient every two weeks, Instruct importance of taking meds as ordered & assist problem solving and Other additional Tobacco Use Tobacco Use: Non-smoker How long ago did you quit using tobacco products?: Greater than or equal to 6 months ago Hypertension Hypertension Diagnosis:: Not Applicable Resting Blood Pressure:: 120/70 [employer] Hypertension Guidelines Outcomes/Goals: Able to verbalize/achieve optimal blood pressure <130/80, Incorporates diet changes & exercise for blood pressure control by DC and Other additional outcomes/goals Interventions/plan: Instruct on optimal blood pressure, hypertension & medications, Instruct on effects of sodium, alcohol, stress, exercise &hypertension and Other additional plan/interventions Tobacco Cessation Referral Individual Education/Counseling:: No Education Schedule Given:: Yes Psychosocial - Initial Assess VIsit Date of Eval: 01/18/23 (initial eval ) History of previous Mental disease:: Yes (bipolar and is in counseling) Target Goals Target Goals Outcomes/Goals: See list Psychosocial Outcomes/Goals:: ID's personal stressors & 2 strategies to manage stress by discharge and Other Additional outcome/goals: Intervention/Plan: See List Interventions/Plan:: Assess stressors,coping strategies & signs of derpression on admission, Instruct/assist pt to develop coping & personal stress Mgt strategies, Refer to Behavioral Health if appropriate, Refer to Physician if appropriate, Instruct patient to recognize signs & symptoms of depression, Instruct patient to recog and Other additional plan/intervention Patient Health Questionnaire PHQ-9 Screening Initial Assessment: 1. Little interest or pleasure in doing things: More than half the days 2. Feeling down, depressed, or hopeless: More than half the days 3. Trouble falling or staying asleep, or sleeping too much: More than half the days 4. Feeling tired or having little energy: More than half the days 5. Poor appetite or overeating: More than half the days 6. Feeling bad about yourself -- or that you are a failure or have let yourself or your family down: More than half the days 7. Trouble concentrating on things, such as reading the newspaper or watching television: More than half the days 8. Moving or speaking so slowly that other people could have noticed. Or the opposite - being so fidgety or restless that you have been moving around a lot more than usual: More than half the days 9. 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) Total Score: 18 CHRISTA-Q SV Test Statements CAD is a disease of the arteries in the heart: False Examples of risk factors for heart disease: True Angina is chest pain or discomfort: True The benefits of resistance training include: I Don't Know Eating more meat and dairy products: False Anti-platelet medications such as aspirin are important: True The only effective way to manage stress: False An exercise warm-up slowly increases heart rate: True Prepared, processed foods usually have high sodium: True Depression is common after a heart attack: False The statin medications lower cholesterol: True To control blood pressure, lower the amount of sodium: True If someone gets chest discomfort during walking: False Transfats are partially hydrogenated vegetable oils: True Sleep apnea that is not treated increases the risk: False To control cholesterol, one should become a vegetarian: False Someone knows if he/she is exercising at the right level: I Don't Know Diabetes cannot be prevented with exercise & health eating: False Stress is a large risk for heart attack: True A diet that can help lower blood pressure is rich in: True Total Score Total Correct Responses: 17 Self-Efficacy 6-Item Scale Initial Assessment: We would like to know how confident you are in doing certain activities. Please select your confidence level for: Fatigue Select Number: 3 Physical Discomfort or Pain Select Number: 4 Emotional Distress Select Number: 4 Other Symptoms or Health Problems Select Number: 4 Different Tasks and Activities Select Number: 4 Medication Select Number: 4 Total Score:: 3 Nutrition Survey Nutrition Survey Instructions Scoring Instructions Nutrition Survey Initial: Have you lost >10 lbs over the past 2 months without trying?: No Are you following a special diet at home for diabetes, low fat, or low salt?: Yes Are you interested in meeting with a dietitian for help understanding your diet?: No Do you eat less than 3 meals a day?: Yes Do you eat fatty meats (andrade, sausage, ribs, etc), fried foods, desserts, large amounts of salad dressings, margarine, butter, or cheese most days?: No Do you have food allergies? [Enter types in comment field]: No Do you eat in restaurants more than 3 times a week?: No Do you season food with salt, seasoning salt, or garlic salt?: No Do you used canned, boxed, frozen meals, or soups, seasoning packets?: No Total Score:: 2 Exercise - Final/Discharge Physician Prescribed Exercise Modalities: Treadmill, Rower, Airdyne, NuStep, SciFit and Lateral [place] Frequency: 2x/week for 18 weeks [36 sessions] Intensity: 60-80% of age predicted maximum heart rate reserve Current METSs:: 3 Target Heart Rate:: 110-127 Nutrition - 30-Day Assessment Weight Mgt (Other Care) Height: 5 ft 4 in Weight:: 247 lb BMI: 42.4 Nutrition - 60-Day Assessment Weight Mgt (Other Care) Height: 5 ft 4 in Weight:: 247 lb BMI: 42.4 Core - Final Assessment Hypertension Resting Blood Pressure:: 120/70 [employer] Hypertension Guidelines Core - 60-Day Assessment Hypertension Resting Blood Pressure:: 120/70 [employer] Hypertension Guidelines Psychosocial - 30-Day Assess Target Goals Target Goals Psychosocial - 60-Day Assess Target Goals Target Goals Psychosocial - 90-Day Assess Target Goals Target Goals Psychosocial - Final Assessmen Target Goals Target Goals Nutrition - 90-Day Assessment Weight Mgt (Other Care) Height: 5 ft 4 in Weight:: 247 lb BMI: 42.4 Nutrition - Final Assessment Program Goals Patient has diagnosis of Hyperlipidemia (ICD E78)?: Yes Weight Mgt (Other Care) Height: 5 ft 4 in Weight:: 247 lb BMI: 42.4
[2023-01-18 14:31] VITALS: BP 120/70
[2023-01-18 14:39] VITALS: BMI 41.1
[2023-01-18 15:00] VITALS: BMI 42.4
[2023-01-18 15:10] VITALS: BP 120/70
== END | disposition home or self-care (01) ==
LOC: CR 14:05
PROVIDERS: PCP Student in an Organized Health Care Education/Training Program
DX: Z95.1 Presence of aortocoronary bypass graft (principal)

== ENCOUNTER 2023-02-15 13:00 | Outpatient (RCR) | payer OTHER, SELFPAY ==
[2023-01-18 14:31] VITALS: BMI 42.4
--- NOTE | 2023-02-15 08:41 | CR.ITP_ITS ---
Exercise - Initial Assessment Visit Session #:: 2 Nutrition - Initial Assessment Weight Mgt (Other Care) Height: 5 ft 4 in Weight:: 247 lb BMI: 42.4 Psychosocial - Initial Assess Target Goals Target Goals Patient Health Questionnaire PHQ-9 Screening 30-Day Re-eval Assessment: 1. Little interest or pleasure in doing things: More than half the days 2. Feeling down, depressed, or hopeless: More than half the days 3. Trouble falling or staying asleep, or sleeping too much: More than half the days 4. Feeling tired or having little energy: More than half the days 5. Poor appetite or overeating: More than half the days 6. Feeling bad about yourself -- or that you are a failure or have let yourself or your family down: More than half the days 7. Trouble concentrating on things, such as reading the newspaper or watching television: More than half the days 8. Moving or speaking so slowly that other people could have noticed. Or the opposite - being so fidgety or restless that you have been moving around a lot more than usual: More than half the days 9. Thoughts that you would be better off , or of hurting yourself in some way: More than half the days How difficult have these problems made it for you to do your work, take care of things at home, or get along with other people?: Very difficult (pt is in counseling) Total Score: 18 Self-Efficacy 6-Item Scale 30-Day Re-eval Assessment: We would like to know how confident you are in doing certain activities. Please select your confidence level for: Fatigue Select Number: 3 Physical Discomfort or Pain Select Number: 4 Emotional Distress Select Number: 4 Other Symptoms or Health Problems Select Number: 4 Different Tasks and Activities Select Number: 4 Medication Select Number: 4 Total Score:: 3 Nutrition Survey Nutrition Survey Instructions Scoring Instructions Exercise - 30-day Assessment Visit Date of Eval: 02/15/23 Session #:: 2 Physician Prescribed Exercise Modalities: Treadmill, NuStep and Lateral [employer] Frequency: 3x/week for 12 weeks [36 sessions] Intensity: 60-80% of age predicted maximum heart rate reserve Current METSs:: 3 Target Heart Rate:: 110-127 Current RPE:: 9-9.5 Maximum Excercise HR:: 112 Resting Blood Pressure: 140/64 Maximum Exercise Blood Pressure: 140/70 EKG Type: NSR to Current Physical Activity or Exercising minutes: NSR to ST Outcomes & Goals Goals:: Verbalizes understanding of THR, RPE & goal METS by session 6, Documents in home exercise log/reports 30 min aerobic 5 day/wk by DC, Demonstrates accurate pulse taking by DC and Other additional outcome/goals: see below Intervention & Plan Exercise Program Goals: Instruct on personal THR & RPE, Instruct on MET level & personal MET goal, Show patient to take own pulse /validate performance until accurate, Instruct on home exercise and Other additional plan/int 30-day Reassessments 30 day Reassessments:: Progressing Reassessment Notes & Comments:: RPE explained Physical Activity Home Exercise Physical Activity - Home Exercise: Safe Exercise, Warm-up, Self-monitoring, Cool-Down, Home Exercise > 30 min Daily and Sitting Time <3 hours/daily Outcomes & Goals Outcomes/Goals: Demonstrates correct Warm-up/exercise Cool-Down (S3) if = 2.5 METs, Verbalizes symptoms of exercise intolerance by Session 3 (S3), Demonstrate safe equipment use (S3) & follows exercise prescrition (6) and Other: See below Intervention & Plan Plan/Intervention: Instruct warm-up & cool-down if exercising at > 2 METs, Instruct on symptoms of exercise intolerance & actions to take, Instruct & monitor on saf, Assess intial functional capacity & safety risk and Other See below 30-day Reassessments 30 day Reassessments:: Progressing Reassessment Notes & Comments:: warm up encouraged Nutrition - 30-Day Assessment Program Goals Nutrition Program Goals Patient has diagnosis of Hyperlipidemia (ICD E78)?: Yes Visit Date of Eval: 02/15/23 Session #:: 2 Cholesterol/Lipids (Other Core Measures) Determine presence & major risk factors that modify LDL goal: Cigarette smoking, Hypertension or hypertensive medication, Low HDL cholesterol <40 mg/dL*, Family history of premature CHD in Male < 55 years: female <65 yearsFa and Age men > 45 years; women >/= 55 years Outcomes/Goals: Pt IDs own risk factors & lifestyle modifications by Session 10, Verbalizes symptoms of angina & response by session 3., Pt independently manages and Other Additional Outcomes/Goals: Intervention/Plan: Advocate for lipid panel cholesterol medication if applicable, Instruct on personal lipid levels & lipid goals/NCEP guidelines, Instruct on cholesterol and Other additional plan/int Diabetes (Other Core Measures) Diabetes Type: Diagnosis Type II ICD-10 E11 Insulin dependent injection/pump?: No Referral to Diabetic Clinic:: Yes Outcomes/Goals:: Able to state symptoms of, Able to state, Able to state and Other additional Intervention/Plan:: Instruct on, Refer to, Instruct on and Other Weight Mgt (Other Care) Height: 5 ft 4 in Weight:: 247 lb BMI: 42.4 Diagnosis Overweight/Obesity BMI> 30% ICD-10 E66: Yes Diagnosis High BMI/Morbid Obesity BMI> 35% ICD-10 Z68: Yes Outcomes/Goals: Pt sets, maintains & shows weight loss goal & trend during rehab and Other additional outcomes/goals Intervention/Plan: Instruct on ideal BMI & set weight loss goal w/patient, Assist pt to ID & incorporate diet changes for weight loss by S9, Refer to Structured Weight Loss program as appropriate, Encourage goal of using 250- 300dcal per session for weight loss and Other additional plan/interventions 30 day Reassessments:: Progressing Reassessment Notes & Comments:: Pt to attend nutrition class Healthy Eating Habits Will attend diet classes:: Yes Outcomes/Goals:: Consume diet rich in vegs,fruits,whole grain/high fiber,fish,lean meat, Limit sat/trans fats,cholesterol & added salts & sugars and Other additional outcome/goals: Intervention/Plan:: Assess current eating habits and Other Additional plan/interventions 30-day Reassessments:: Progressing Reassessment Notes & Comments:: pt to attend nutrition class Education Gave educational materials for:: Signs & symptoms of hypoglycemia, Signs & symptoms of hyperglycemia, Relate diabetes to coronary artery disease and Healthy eating Nutrition - 60-Day Assessment Weight Mgt (Other Care) Height: 5 ft 4 in Weight:: 247 lb BMI: 42.4 Core - 30-Day Assessment Visit Date of Eval: 02/15/23 Session #:: 2 Medication Compliance Preventative Medication(s):: Aspirin, Statin/lipid and Beta jose H/O mental health issues: depression, anxiety, or addiction?: Yes Doesn?t believe in the benefits of treatment?: No Believes medications are unnecessary or harmful?: No Has a concern about medication side effects?: No Expresses concern over the cost of medications?: No Outcomes/Goals: Verbalizes medications,desired effect & common side effects @ DC, Pt self-reports following medication regimen, Keeps card in wallet w/medications listed by DC and Other additional outcome/goals: Interventions/plans: Instruct on medication effects & side effects, Review medication list w/patient every two weeks, Instruct importance of taking meds as ordered & assist problem solving and Other additional 30-day Reassessments:: Progressing Reassessment Notes & Comments:: encouraged to take meds Tobacco Use Tobacco Use: Non-smoker Hypertension Hypertension Diagnosis:: Hypertension ICD-10 I10 Resting Blood Pressure:: 140/64 [place] [employer] Hypertension Guidelines Peak Exercise Blood Pressure:: 140/70 Outcomes/Goals: Able to verbalize/achieve optimal blood pressure <130/80, Incorporates diet changes & exercise for blood pressure control by DC and Other additional outcomes/goals Interventions/plan: Instruct on optimal blood pressure, hypertension & medications, Instruct on effects of sodium, alcohol, stress, exercise &hypertension and Other additional plan/interventions 30 day Reassessments:: Progressing Reassessment Notes & Comments:: pt encouraged to take meds Tobacco Cessation Referral Smoking Cessation Referral:: No Individual Education/Counseling:: No Education Schedule Given:: Yes Psychosocial - 30-Day Assess VIsit Date of Eval: 02/15/23 Session #:: 2 History of previous Mental disease:: Yes (bipolar and is in counseling) Target Goals Target Goals Psychosocial - 60-Day Assess Target Goals Target Goals Psychosocial - 90-Day Assess Target Goals Target Goals Psychosocial - Final Assessmen Target Goals Target Goals Nutrition - 90-Day Assessment Weight Mgt (Other Care) Height: 5 ft 4 in Weight:: 247 lb BMI: 42.4 Nutrition - Final Assessment Weight Mgt (Other Care) Height: 5 ft 4 in Weight:: 247 lb BMI: 42.4
[2023-02-15 08:46] VITALS: BP 140/64
[2023-02-15 08:55] VITALS: BP 140/64; BMI 42.4
== END 2023-03-07 23:59 ==
LOC: CR 13:00
PROVIDERS: PCP Student in an Organized Health Care Education/Training Program; Referring Provider Thoracic Surgery (Cardiothoracic Vascular Surgery); Visit Provider Thoracic Surgery (Cardiothoracic Vascular Surgery)
DX: I25.10 Atherosclerotic heart disease of native coronary artery without angina pectoris (principal); Z95.1 Presence of aortocoronary bypass graft
CPT/HCPCS: 93798

== ENCOUNTER 2023-03-07 08:50 | Outpatient (RCR) | payer OTHER, SELFPAY ==
[2023-03-07 09:05] VITALS: BP 124/74; PULSE 70; RESP 16; TEMP 35.8; BMI 42.2
--- NOTE | 2023-03-07 10:22 | PCM.WC.HP ---
History of Present Illness Date of Service: 03/07/23 Chief Complaint: No healing surgical wound History of Wound: Ms Turner is a 52 yo who was referred to the wound center due to nonhealing surgical wound. Had CABG in December. Since then, a portion of her wound had not closed. Had purulent drainage from this area. She states that she saw her surgeon a few weeks ago and had iodoform packing to the area. Has been doing this at home but since Saturday, has had difficulty packing anything and has had no further drainage. She reports a history of diabetes mellitus and her last A1c was 5.1. [facility] Medical History (Updated 03/07/23 @ 14:[address] Misti Anderson MD) Anxiety Asthma Bipolar disorder Coronary artery disease DM2 (diabetes mellitus, type 2) Fibromyalgia Fibromyalgia GERD (gastroesophageal reflux disease) Hyperlipidemia Hypertension Lung disease with systemic sclerosis Lupus (systemic lupus erythematosus) Non-healing surgical wound Raynaud disease Restless leg syndrome Scleroderma Stroke/cerebrovascular accident Trigeminal neuralgia of left side of face Home Medications Magnesium 250 mg PO DAILY supplement 07/01/18 [History Last Taken Unknown] albuterol sulfate 90 mcg/actuation aerosol inhaler (ProAir HFA) 2 puff inhalation Q4H PRN PRN Sob &/Or Wheezing 07/01/18 [History Last Taken Unknown] amlodipine 10 mg tablet 10 mg PO DAILY blood pressure 07/01/18 [History Last Taken Unknown] aspirin 325 mg tablet 325 mg PO DAILY heart health 07/01/18 [History Last Taken Unknown] buspirone 5 mg tablet 10 mg PO TID mental health 07/01/18 [History Last Taken Unknown] calcium carbonate 600 mg-vitamin D3 20 mcg (800 unit) tablet (Caltrate with Vitamin D3) 1 ea PO DAILY supplement 07/01/18 [History Last Taken Unknown] celecoxib 200 mg capsule 200 mg PO BID pain 07/01/18 [History Last Taken Unknown] clopidogrel 75 mg tablet 75 mg PO DAILY anti platelet 07/01/18 [History Last Taken Unknown] cyclobenzaprine 10 mg tablet 10 mg PO TID PRN PRN muscle spasms 07/01/18 [History Last Taken Unknown] dulaglutide 1.5 mg/0.5 mL subcutaneous pen injector (Trulicity) 1.5 mg SQ QWEEK diabetes 07/01/18 [History Last Taken Unknown] ergocalciferol (vitamin D2) 1,250 mcg (50,000 unit) capsule (Vitamin D2) 50,000 unit PO WESA vitamin 07/01/18 [History Last Taken Unknown] esomeprazole magnesium 40 mg granules delayed release for susp (Nexium Packet) 40 mg PO BID reflux 07/01/18 [History Last Taken Unknown] fluticasone 500 mcg-salmeterol 50 mcg/dose blistr powdr for inhalation (Advair Diskus) 1 ea IH BID breathing 07/01/18 [History Last Taken Unknown] hydroxychloroquine 200 mg tablet 200 mg PO BIDCM inflammation 07/01/18 [History Last Taken Unknown] polyethylene glycol 3350 17 gram oral powder packet 17 g PO DAILY PRN Constipation 07/01/18 [History Last Taken Unknown] calcium-vitamin D3-vitamin K 500 mg-1,000 unit-40 mcg chewable tablet (Citracal-D3 Soft Chew) 5 ea PO DAILY vitamin 08/19/18 [History Last Taken Unknown] lorazepam 1 mg tablet 1 mg PO Q6H PRN PRN Anxiety 07/11/20 [History Last Taken Unknown] metoprolol succinate 25 mg tablet,extended release 24 hr 25 mg PO DAILY blood pressure 07/11/20 [History Last Taken Unknown] oxcarbazepine 150 mg tablet 150 mg PO DAILY seizures 07/11/20 [History Last Taken Unknown] hydrocodone-acetaminophen 5-325mg 5mg-325mg 1 tab PO Q6H PRN PRN Pain 3 days #10 TABLETS 12/14/20 [Rx Last Taken Unknown] Allergy/AdvReac Type Severity Reaction Status Date / Time amoxicillin Allergy Rash Verified 03/07/23 09:16 atorvastatin calcium Allergy Hives Verified 03/07/23 09:13 [From Lipitor] azithromycin Allergy Rash Verified 03/07/23 09:16 doxycycline Allergy Rash Verified 03/07/23 09:16 lamotrigine [From Lamictal] Allergy Hives Verified 03/07/23 09:13 midazolam HCl [From Versed] Allergy Other Verified 03/07/23 09:13 paroxetine [From Paxil] Allergy Rash Verified 03/07/23 09:13 Penicillins Allergy Hives Verified 03/07/23 09:13 escitalopram [From Lexapro] AdvReac Other Verified 03/07/23 09:16 Surgical History (Updated 03/07/23 @ 14:[address] Misti Anderson MD) History of cerebral aneurysm repair History of coronary artery stent placement S/P CABG (coronary artery bypass graft) Social History (Updated 12/14/20 @ 20:[address] Bobo Benavidez MD) household members: spouse housing: house Smoking Status: Never smoker alcohol intake: current alcohol intake frequency: other substance use type: does not use ROS Constitutional Constitutional: Denies body ache(s), frequent falls, headache(s), lethargy or malaise Eyes Eyes: Denies acute decrease in peripheral vision, blind spots, bloody eye, burning, change in eye color, discharge from eye(s), dry eyes, erythema or excessive blinking ENT HEENT: Denies abnormal hearing, bleeding gums, change in voice, disequillibrium, dizziness, dysphagia, epistaxis, facial pain or foreign body in nose Cardiovascular Cardiovascular: Denies abdominal bloating, abdominal pain, chest pain, chest pain at rest, cold extremities, cyanosis or diaphoresis Respiratory/Chest Respiratory/Chest: Denies change in mental status, chest congestion, chest tightness, cough, difficulty clearing secretions or dusky skin Gastrointestinal Gastrointestinal: Denies abdominal pain, anorexia, belching, chewing difficulty, cramping or dry heaves Vital Signs Vital Signs Vital Signs: 03/07/23 09:05 Temperature 96.5 F L Temperature Source Temporal Pulse Rate 70 Respiratory Rate 16 Blood Pressure 124/74 H Blood Pressure Mean 90 Blood Pressure Source Monitor Blood Pressure Position Sitting Blood Pressure Location Left Forearm Oxygen Delivery Method Room Air Weight Weight: 246 lb Body Mass Index (BMI) 42.2 Physical Exam Const alert, oriented x3 and no apparent distress General Appearance: cooperative, comfortable and well kempt HEENT normocephalic and head/scalp atraumatic Eyes General Eye: normal appearance of both eyes Neck full ROM General: normal visual inspection Resp normal respiratory effort Effort and Inspection: able to speak in complete sentences Extremity normal to inspection Skin General Skin Exam: no breakdown Neuro oriented x3, CN's II-XII intact bilaterally, moves all extremities and no focal motor deficits Psych mental status grossly normal, thought process normal, cooperative and affect normal Debridement Note Debridement Note Post-Debridement Measurements and Additional Note: Post-Debridement Measurements/Treatment WC - Nurse 1 - General Ulcer Assessment Start: 03/07/23 09:03 Freq: Status: Active Protocol: LIZETH Activity Type Activity Date Activity User E-sign Co-sign Detail Recorded Client Recorded Date Recorded By Document 03/07/23 09:05 [facility] [id number] 03/07/23 09:11 [facility] 03/07/23 09:05 - Today's Visit Information Type of service Initial Visit Arrival Mode Ambulatory Transfer Assistance None Patient Identification Verified (Name & Yes ) Height and Weight Height 5 ft 4 in Weight 246 lb Weight in Pounds 246.0 lbs Weight Measurement Method Stated by Patient Body Mass Index (BMI) 42.2 BMI Classification Obese BSA - Jose 2.14 Vital Signs Temperature (97.8 F-99.1 F) 96.5 F L Temperature Source Temporal Pulse Rate (60-100) 70 Pulse Location Monitor Respiratory Rate (12-18) 16 Respiratory rate source Observation Oxygen Delivery Method Room Air Blood Pressure (90/60-120/80) 124/74 H Blood Pressure Mean 90 Source Monitor Position Sitting Blood Pressure Location Left Forearm History Since Last Visit- (Skip if this is Patient's initial visit) Left Footwear Regular Shoe Right Footwear Regular Shoe Pain Scale: 0-10 Numeric Is Patient Pain Free? 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 No Able to Read Yes Able to Write Yes Right Hearing Abillity Normal Left Hearing Abillity Normal Visual Assistive Devices Glasses Teaching Assessment Preferences Verbal,Written, Audio/Visual, Demonstration Barriers to Learning None Readiness To Learn Excellent Willingness to Engage in Self Management High Activies Readiness to Engage in Self Management High Activities Anxiety Level Calm Cooperation Cooperative Perception Coherent Interest in Health Problem Asks Questions Education Importance Acknowledges Need Does Patient Smoke tobacco or other No substances Smoking Status Never smoker Is Patient Diabetic Yes Functional Assessment Recent Decline in Ability to Perform Denies Any Declines 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 Cultural/Adventism Needs that may affect No Treatment Plan Teaching: Wound Center *Welcome to the Wound Center -Person Taught Patient -Teaching Method Discussion -Response to teaching Verbalize understanding - Nurse 1 - General Ulcer Measurement Start: 03/07/23 09:03 Freq: Status: Active Protocol: Activity Type Activity Date Activity User E-sign Co-sign Detail Recorded Client Recorded Date Recorded By Document 03/07/23 09:05 [facility] [id number] 03/07/23 09:11 [facility] 03/07/23 09:05 Wound Center Nurse 1 #1- MID CHEST -Combined with other wound No -Current Size (cm) - Length 0.1 -Current Size (cm) - Width 0.1 -Current Size (cm) - Depth 0.1 -Total Square Cm 0.01 -Date of Last Picture (Recall this 03/07/23 field) -Photo Taken Yes -Tunneling No -Undermining/Tunneling No -Circular Undermining No -Exudate Amt None Present -Wound Margin Distinct, Outline Attached -Texture (Priya-wound Skin Appearance) Assessed, Scarring -Moisture (Priya-wound Skin Appearance) Assessed -Color (Priya-wound Skin Appearance) Assessed -Temperature (Priya-wound Skin No Abnormality Appearance) (Pt Warm) -Tenderness on Palpation (Priya-wound No Skin Appearance) -Ulcer Cleansing Rinsed/ Irrigated with Saline -Foul Odor after Cleansing No -Anesthetic Used 5% Lidocaine Gel WC - Nurse 2 - General Ulcer CM Notes Start: 03/07/23 09:03 Freq: Status: Active Protocol: Activity Type Activity Date Activity User E-sign Co-sign Detail Recorded Client Recorded Date Recorded By Document 03/07/23 09:41 Desktop 03/07/23 09:43 03/07/23 09:41 Wound Center Nurse 2 -Correct Patient No -Correct Side, Site, Position No -Correct Procedure No -Procedure Performed No -Post Debridement (cm) - Length 0 -Post Debridement (cm) - Width 0 -Post Debridement (cm) - Depth 0 -Total Square (Post) (cm) 0 -Area of Debridement (cm) - Length 0 -Area of Debridement (cm) - Width 0 -Total Square (Area) (cm) 0 -Wound/Ulcer Outcome Healed- Epithelialized -Bleeding Controlled with NA -Debridement - Subq, 1st 20sq cm No Pain Scale: 0-10 Numeric Is Patient Pain Free? Yes WC - Nurse 3 - General Ulcer D/C NN Start: 03/07/23 09:03 Freq: Status: Active Protocol: Activity Type Activity Date Activity User E-sign Co-sign Detail Recorded Client Recorded Date Recorded By Document 03/07/23 09:53 [facility] [id number] 03/07/23 09:54 [facility] 03/07/23 09:53 Wound Care Center Nurse 3 #1- MID CHEST -Ulcer Cleansing Rinsed/ Irrigated with Saline -Primary Dressing Applied Promogran Angela Matter -Primary Dressing Covered/Secured with Dry Gauze, Secured with Tape -Promogran Angela Matter 1 Treatment Response Procedure Tolerated Well Pain Scale: 0-10 Numeric Is Patient Pain Free? Yes Teaching: Wound Center Dressing Your Wound -Person Taught Patient -Teaching Method Discussion, Demonstration -Response to teaching Verbalize understanding WC - Visit Discharge Discharge Condition Stable Ambulatory Status Ambulatory Transportation Private Auto Medication Reconcilliation completed & No provided to patient/care provider Clinical Summary of Care Provided Yes Charges/Coding Visit Charges Office Visits / Consults: [id number] OV L3 New Assessment/Plan Assessment/Plan (1) Non-healing surgical wound: CODE(S): T81.89XA - Other complications of procedures, not elsewhere classified, initial encounter (2) S/P CABG (coronary artery bypass graft): CODE(S): Z95.1 - Presence of aortocoronary bypass graft (3) Type 2 diabetes mellitus: CODE(S): E11.9 - Type 2 diabetes mellitus without complications PLAN: Plan No debridement completed today. The wound is actually healed. Wound area probed with a metal probe and no concerns noted. Risk for wound breakdown/moisture due to location. She was advised to keep area dry. May cover Promogran and gauze for 2 weeks and then stop. Patient voiced understanding. Continue optimal diabetes control and care management. Her questions were answered and she was advised to let us know if she has any further questions or concerns. Discharge from the wound center. This note was generated with [employer] dictation software. It may contain incorrect words, spelling, and punctuation that were not noted in checking the note before signing.
== END 2023-03-07 16:47 | disposition home or self-care (01) ==
LOC: WC 08:50
PROVIDERS: PCP Student in an Organized Health Care Education/Training Program; Referring Provider Student in an Organized Health Care Education/Training Program; Visit Provider Internal Medicine
DX: T81.89XA Other complications of procedures, not elsewhere classified, initial encounter (principal); M32.9 Systemic lupus erythematosus, unspecified; F31.9 Bipolar disorder, unspecified; E11.9 Type 2 diabetes mellitus without complications; Z79.51 Long term (current) use of inhaled steroids; E78.5 Hyperlipidemia, unspecified; Z95.1 Presence of aortocoronary bypass graft; Z79.2 Long term (current) use of antibiotics; I10 Essential (primary) hypertension; I25.10 Atherosclerotic heart disease of native coronary artery without angina pectoris; M79.7 Fibromyalgia; Z86.73 Personal history of transient ischemic attack (TIA), and cerebral infarction without residual deficits; J45.909 Unspecified asthma, uncomplicated; I73.00 Raynaud's syndrome without gangrene
CPT/HCPCS: 99213; G0463